=== PATIENT | male | born 1965 | race American Indian/Alaskan Native ===

== ENCOUNTER 2016-10-01 13:39 | Inpatient (IN) | payer MEDICARE ==
--- NOTE | 2016-10-01 14:32 | Emergency Department Report ---
Chief Complaint: Recheck/Abnormal Lab/Rx Stated Complaint: NEED DIALYSIS/HUA Time Seen by Provider: 10/01/16 14:29 - HPI History of Present Illness: PT states he has not had HD in 1 week. PT states his stomach is upset and he is throwing up. - ROS Review of Systems: + sob + swelling - Exam Physical Exam: PT is alert and appropriate + bradycardic MSE screening note: Focused history and physical exam performed. Due to findings the following was ordered: ekg, xr, labs ED Disposition for MSE Condition: Stable
[2016-10-01 15:21] LABS: Basophils % (Auto) 1.4 % (0.0-1.8); Eosinophils % (Auto) 8.8 % (0.0-4.3); Hematocrit 33.3 % (35.5-45.6); Hemoglobin 10.9 gm/dl (11.8-15.2); Mean Corpuscular HGB Conc 33 % (32-34); Mean Corpuscular Hemoglobin 33 pg (28-32); Mean Corpuscular Volume 99 fl (84-94); Platelet Count 203 K/mm3 (140-440); Red Blood Count 3.35 M/mm3 (3.65-5.03); Red Cell Distribution Width 19.2 % (13.2-15.2)
[2016-10-01 15:35] LABS: BUN/Creatinine Ratio 5.19
[2016-10-01 15:37] LABS: Potassium 8.6 mmol/L (3.6-5.0)
[2016-10-01] MEDS ORDERED: PROVENTIL IH ONE (15:40)
[2016-10-01] MEDS ORDERED: D50W (25GM) IV ONE (15:41)
[2016-10-01] MEDS ORDERED: CALCIUM GLUCONATE 2,000 MG in NACL 0.9% 100 ML IV ONE (16:00)
[2016-10-01] MEDS ORDERED: CALCIUM GLUCONATE 1,000 MG in NACL 0.9% 100 ML IV ONE (16:13)
--- NOTE | 2016-10-01 16:13 | XRay Report ---
AP CHEST :10/01/16 13:39:00 CLINICAL: Shortness of breath. COMPARISON:None. FINDINGS: The heart is borderline large. Prominent upper lobe pulmonary vessels. Very mild bibasal streaky opacities. No pulmonary consolidation. No pleural effusion. The bones and soft tissues are normal. IMPRESSION: Borderline cardiomegaly and pulmonary venous hypertension. Mild bibasal subsegmental atelectasis. No CHF or pneumonia.
[2016-10-01] MEDS ORDERED: NACL 0.9% 100 ML IV PRN (16:44)
--- NOTE | 2016-10-01 16:52 | Emergency Department Report ---
ED General Adult HPI - General Chief complaint: Dyspnea/Respdistress Stated complaint: NEED DIALYSIS/HUA Time Seen by Provider: 10/01/16 14:29 Source: patient Mode of arrival: Ambulatory Limitations: No Limitations - History of Present Illness Initial comments: Patient is a 50-year-old male past medical history of end-stage renal disease who gets dialysis Saturday. Patient comes in with shortness of breath and myalgia. Patient states that he is from [place] and that he was traveling to [place] however due to transportation issues he had missed his dialysis for at least one week. Patient's shortness of breath is worse with exertion. It is severe resting makes it better is associated with what muscle aches. Patient denies having any chest pain or fever. Patient is currently satting 98% on 2 L of nasal cannula. He is normally not on any oxygen. Severity scale (0 -10): 4 - Related Data Home Medications Medication Instructions Recorded Confirmed Last Taken Aspirin [Adult Low Dose Aspirin EC] 81 mg PO DAILY 10/01/16 10/01/16 09/30/16 Calcitriol [Rocaltrol] 1 mcg PO QDAY 10/01/16 10/01/16 09/30/16 Darunavir [Prezista] 800 mg PO QDAY 10/01/16 10/01/16 09/30/16 Docusate Sodium [Dok] 200 mg PO TID 10/01/16 10/01/16 09/30/16 Dolutegravir Sodium [Tivicay] 50 mg PO DAILY 10/01/16 10/01/16 09/30/16 Doxazosin [Cardura] 4 mg PO BID 10/01/16 10/01/16 09/30/16 Etravirine [Intelence] 400 mg PO DAILY 10/01/16 10/01/16 09/30/16 Losartan [Cozaar] 100 mg PO QDAY 10/01/16 10/01/16 09/30/16 NIFEdipine [Nifedipine ER] 60 mg PO BID 10/01/16 10/01/16 09/30/16 Ritonavir [Norvir] 100 mg PO QDAY 10/01/16 10/01/16 09/30/16 hydrALAZINE [Apresoline TAB] 100 mg PO TID 10/01/16 10/01/16 09/30/16 Allergies Allergy/AdvReac Type Severity Reaction Status Date / Time cephalexin monohydrate AdvReac Itching Verified 10/01/16 14:35 [From Keflex] heparin AdvReac Unknown Verified 10/01/16 14:35 Sulfa (Sulfonamide AdvReac Hives Verified 10/01/16 14:35 Antibiotics) ED Review of Systems ROS: Stated complaint: NEED DIALYSIS/HUA Other details as noted in HPI Constitutional: denies: chills, fever Eyes: denies: eye pain, eye discharge, vision change ENT: denies: ear pain, throat pain Respiratory: SOB with exertion, SOB at rest. denies: cough, shortness of breath , wheezing Cardiovascular: denies: chest pain, palpitations Endocrine: no symptoms reported Gastrointestinal: denies: abdominal pain, nausea, diarrhea Genitourinary: denies: urgency, dysuria Musculoskeletal: denies: back pain, joint swelling, arthralgia Skin: denies: rash, lesions Neurological: denies: headache, weakness, paresthesias Psychiatric: denies: anxiety, depression Hematological/Lymphatic: denies: easy bleeding, easy bruising ED Past Medical Hx - Past Medical History Previous Medical History?: Yes Hx Hypertension: Yes Hx Renal Disease: Yes - Surgical History Past Surgical History?: Yes - Social History Smoking Status: Never Smoker Substance Use Type: None - Medications Home Medications: Home Medications Medication Instructions Recorded Confirmed Last Taken Type Aspirin [Adult Low Dose Aspirin EC] 81 mg PO DAILY 10/01/16 10/01/16 09/30/16 History Calcitriol [Rocaltrol] 1 mcg PO QDAY 10/01/16 10/01/16 09/30/16 History Darunavir [Prezista] 800 mg PO QDAY 10/01/16 10/01/16 09/30/16 History Docusate Sodium [Dok] 200 mg PO TID 10/01/16 10/01/16 09/30/16 History Dolutegravir Sodium [Tivicay] 50 mg PO DAILY 10/01/16 10/01/16 09/30/16 History Doxazosin [Cardura] 4 mg PO BID 10/01/16 10/01/16 09/30/16 History Etravirine [Intelence] 400 mg PO DAILY 10/01/16 10/01/16 09/30/16 History Losartan [Cozaar] 100 mg PO QDAY 10/01/16 10/01/16 09/30/16 History NIFEdipine [Nifedipine ER] 60 mg PO BID 10/01/16 10/01/16 09/30/16 History Ritonavir [Norvir] 100 mg PO QDAY 10/01/16 10/01/16 09/30/16 History hydrALAZINE [Apresoline TAB] 100 mg PO TID 10/01/16 10/01/16 09/30/16 History ED Physical Exam - General Limitations: No Limitations General appearance: alert, in no apparent distress - Head Head exam: Present: atraumatic, normocephalic - Eye Eye exam: Present: normal appearance - ENT ENT exam: Present: mucous membranes moist - Neck Neck exam: Present: normal inspection - Respiratory Respiratory exam: Present: other (slight crackles ) - Cardiovascular Cardiovascular Exam: Present: bradycardia - GI/Abdominal GI/Abdominal exam: Present: soft. Absent: distended, tenderness - Extremities Exam Extremities exam: Present: other (right AV fistula bruit intact ) - Back Exam Back exam: Present: normal inspection - Neurological Exam Neurological exam: Present: alert, oriented X3, CN II-XII intact - Psychiatric Psychiatric exam: Present: normal affect, normal mood - Skin Skin exam: Present: warm ED Course Vital Signs 10/01/16 10/01/16 10/01/16 14:30 15:23 15:25 Temperature 98.2 F Pulse Rate 45 L 52 L 55 L Respiratory 24 21 12 Rate Blood Pressure 226/102 O2 Sat by Pulse 100 100 100 Oximetry 10/01/16 10/01/16 10/01/16 15:31 15:35 15:41 Temperature Pulse Rate 45 L 47 L 43 L Respiratory 21 19 16 Rate Blood Pressure 225/101 225/101 225/101 O2 Sat by Pulse 100 100 100 Oximetry 10/01/16 10/01/16 10/01/16 15:45 15:51 15:55 Temperature Pulse Rate 53 L 58 L 58 L Respiratory 16 19 13 Rate Blood Pressure 225/101 225/101 225/101 O2 Sat by Pulse 100 99 100 Oximetry 10/01/16 10/01/16 16:00 16:05 Temperature Pulse Rate 65 63 Respiratory 20 12 Rate Blood Pressure 235/113 235/113 O2 Sat by Pulse 90 95 Oximetry - Reevaluation(s) Reevaluation #1: 10/01/16 17:33 Reevaluated patient he says he is doing fine he is still on 2 L nasal cannula. Reevaluation #2: 10/01/16 17:34 Patient's blood pressure is 204/98 will give patient IV antihypertensives. - Consultations Consultation #1: 10/01/16 16:[address] Lowry Telephone Order Clerk Room Service about patient's hyperkalemia and need for emergent dialysis. He states that he will place the dialysis orders and I will give the patient IV calcium, IV insulin, IV dextrose, albuterol. 10/01/16 17:33 Consultation #2: 10/01/16 17:[address] Harry the hospitalist patient needs to be admitted and dialysis orders are placed he agrees with plan. He will admit the patient. ED Medical Decision Making - Lab Data Result diagrams: 10/01/16 14:59 10/01/16 14:59 Laboratory Results - last 24 hr 10/01/16 10/01/16 10/01/16 14:59 14:59 16:14 WBC 7.0 RBC 3.35 L Hgb 10.9 L Hct 33.3 L MCV 99 H MCH 33 H MCHC 33 RDW 19.2 H Plt Count 203 Lymph % (Auto) 13.7 Boyle % (Auto) 3.7 Eos % (Auto) 8.8 H Baso % (Auto) 1.4 Lymph # 1.0 L Boyle # 0.3 Eos # 0.6 H Baso # 0.1 Seg Neutrophils % 72.4 H Seg Neutrophils # 5.1 Sodium 147 H Potassium 8.6 H* Chloride 105.0 Carbon Dioxide 17 L Anion Gap 34 BUN 106 H Creatinine 20.4 H Estimated GFR 2 BUN/Creatinine Ratio 5.19 Glucose 78 Calcium 9.0 Troponin T 0.084 H NT-Pro-B Natriuret Pep 99066 H Triglycerides 149 Cholesterol 179 LDL Cholesterol Direct 73 HDL Cholesterol 77 H Cholesterol/HDL Ratio 2.32 - EKG Data -: EKG Interpreted by Me - EKG Data 10/01/16 17:31 EKG shows sinus bradycardia no ST segment elevations or T-wave inversions. - Radiology Data Radiology results: report reviewed, image reviewed Chest x-ray shows borderline cardiomegaly. - Medical Decision Making Chief medical diagnosis: Hyperkalemia Differential medical diagnosis: Hypertensive urgency, non-STEMI, metabolic abnormality, heart failure CBC, CMP, TROPONIN, CHEST X-RAY, EKG PATIENT HAS A POTASSIUM OF 8.6 , I'll give patient IV calcium, IV glucose, IV insulin, IV antihypertensives and albuterol due to patient's emergent conditon. I will also give the patient aspirin due to him having an elevated troponin, patient is at risk for a life-threatening metabolic abnormality he will need to be admitted. Discussed patient's case with cardiac nurse practitioner Critical Care Time: Yes Critical care time in (mins) excluding proc time.: 35 Critical care attestation.: If time is entered above; I have spent that time in minutes in the direct care of this critically ill patient, excluding procedure time. Time spent at patient's bedside to 20 minutes Time spent with consultants 10 minutes Time again over laboratory findings 5 minutes ED Disposition Clinical Impression: End stage renal disease on dialysis, Hyperkalemia, Bradycardia, Hypertensive urgency Disposition: [id number] OP ADMIT IP TO THIS HOSP Is pt being admited?: Yes Does the pt Need Aspirin: No (patient already got aspirin) Condition: Stable Referrals: PRIMARY CARE, [Primary Care Provider] - 3-5 Days Time of Disposition: 17:40
--- NOTE | 2016-10-01 17:08 | Admit Criteria Form ---
Admission Criteria Documentation: GENERAL ADMISSION CRITERIA (Place 'X' for any and all applicable criteria): Admission is indicated for ANY ONE of the following: [ ]I. Hemodynamic instability as indicated by ANY ONE of the following(1)(2) (3)(4)(5): [ ]a) Vital sign abnormality not readily corrected by appropriate treatment within 12 to 24 hours indicated by ANY ONE of the following: [ ]i) Hypotension [ ]ii) Symptomatic Tachycardia unresponsive to treatment (eg , analgesia, fluids, sedation as indicated) [ ]iii) Orthostatic vital sign changes unresponsive to treatment (eg, fluids) [ ]b) Vital sign abnormality that is severe indicated by ANY ONE of the following: [ ]i) Inadequate perfusion indicated by ANY ONE of the following: [ ]1) Lactic acidosis (greater than 2 mmol/L) [ ]2) New abnormal capillary refill (greater than 3 seconds) [ ]3) Other metabolic acidosis (arterial pH less than 7.35) not otherwise explained [ ]4) Reduced urine output [ ]5) Altered mental status [ ]6) Myocardial Ischemia [ ]v) Mean arterial pressure[A] less than 60 mm Hg [ ]vi) Mean arterial pressure[A] less than 70 mm Hg after 30 minutes of appropriate treatment (eg, fluid resuscitation) [ ]vii) IV inotropic or vasopressor medication required to maintain adequate blood pressure or perfusion [ ]viii) Sustained heart rate greater than 120 beats per minute in adult or child 6 years or older[B]] [X ]II. Hypertension requiring inpatient treatment as indicated by ANY ONE of the following(6)(7)(8): [ X]a) SBP greater than 220 mm Hg or DBP greater than 120 mm Hg despite treatment [ ]b) SBP greater than 140 mm Hg or DBP greater than 100 mm Hg with evidence of acute end organ damage as indicated by ANY ONE of the following: [ ]i) Encephalopathy [ ]ii) Acute renal failure as indicated by new onset of ANY ONE of the following(9)(10)(11)(12)(13): [ ]1) A 3-fold rise in serum creatinine from baseline [ ]2) Serum creatinine greater than 4 mg/dL ( 354 micromoles/L) with acute rise greater than 0.5 mg/dL (44.2 micromoles/L) [ ]3) Reduction of more than 75% in estimated glomerular filtration rate from baseline [ ]4) Estimated glomerular filtration rate less than 35 mL/min/1.73m2 (0.59 mL/sec/1.73m2) in child up to 18 years of age [ ]5) Cessation of urine output indicated by ALL of the following: [ ]A. Adequate volume status [ ]B. Inadequate urine output as indicated by ANY ONE of the following: [ ]a. Urine output less than 0.3 mL/kg/hr for 24 hours [ ]b. Anuria (urine output less than 0.1 mL/kg/hr) for 12 hours [ ]iii) Aortic dissection [ ]iv) Myocardial ischemia [ ]v) Left ventricular heart failure [ ]vi) Retinal hemorrhage [ ]vii) Other significant finding [ ]c) Hypertension in child requiring inpatient treatment as indicated by ALL of the following(14)(15)(16): [ ]i) Outpatient treatment not effective, not available, or not appropriate [ ]ii) SBP or DBP greater than 95th percentile for age [ ]iii) Evidence of acute end organ damage as indicated by ANY ONE of the following: [ ]1) Altered mental status [ ]2) Acute renal failure as indicated by new onset of ANY ONE of the following(9)(10)(11)(12)(13): [ ]A. A 3-fold rise in serum creatinine from baseline [ ]B. Serum creatinine greater than 4 mg/dL (354 micromoles/L) with acute rise greater than 0.5 mg/dL (44.2 micromoles/L) [ ]C. Reduction of more than 75% in estimated glomerular filtration rate from baseline [ ]D. Estimated glomerular filtration rate less than 35 mL/min/1.73m2 (0.59 mL/sec/1.73m2)in child up to 18 years of age [ ]E. Cessation of urine output indicated by ALL of the following: [ ]a. Adequate volume status [ ]b. Inadequate urine output as indicated by ANY ONE of the following: [ ]1) Urine output less than 0.3 mL/kg/hr for 24 hours [ ]2) Anuria (urine output less than 0.1 mL/kg/hr) for 12 hours [ ]3) Severe headache [ ]4) Visual disturbance [ ]5) Retinal hemorrhage [ ]6) Other significant finding [ ]III. Acute cardiac or peripheral ischemia as indicated by ANY ONE of the following: [ ]a) Acute coronary syndrome(17)(18) [ ]b) Acute peripheral ischemia (eg, pulseless, cool, mottled, or cyanotic extremity)(19) [ ]IV. Cardiac arrhythmias or findings of immediate concern indicated by ANY ONE of the following(20)(21): [ ]a) Heart rhythms that are inherently dangerous or unstable indicated by ANY ONE of the following(22)(23)(24): [ ]i) Resuscitated ventricular fibrillation or cardiac arrest [ ]ii) Ventricular escape rhythm [ ]iii) Sustained ventricular tachycardia (30 seconds or more of ventricular rhythm at greater than 100 beats per minute) [ ]iv) Nonsustained ventricular tachycardia and ANY ONE of the following: [ ]1) Suspected cardiac ischemia as cause or consequence of ventricular tachycardia [ ]2) In setting of acute myocarditis [ ]b) Unstable cardiac conduction defects indicated by ANY ONE of the following(24)(25)(26): [ ]i) Type II second-degree atrioventricular block [ ]ii) Third-degree atrioventricular block [ ]iii) New-onset left bundle branch block with suspected myocardial ischemia [ ]c) Any heart rhythm and ANY ONE of the following(22)(23)(27)(28)( 29): [ ] i) Continuous long-term ECG monitoring needed (eg, initiation of drug requiring monitoring for more than 24 hours) [ ] ii) Patient has automatic implanted cardioverter defibrillator that is repeatedly firing, malfunctioning, or in need of immediate adjustment of settings beyond the scope of ambulatory or observation care. [ ]d) Heart rhythms of concern due to ANY ONE of the following: [ ]i) Hypotension [ ]ii) Respiratory distress [ ]iii) Association with other significant symptoms (eg, bradycardia with syncope or ongoing dizziness, supraventricular tachycardia with chest pain) (27)(28) (30) [ ] V. Severe heart failure as indicated by ANY ONE of the following ( 31)(32): [ ]a) Respiratory distress [ ]b) Hypotension [ ]c) Anasarca (refractory to outpatient therapy) [ ]d) Cardiac arrhythmias of immediate concern [ ]e) Myocardial ischemia [ ]. Respiratory abnormalities, including ANY ONE of the following(33)(34) (35)(36): [ ]a) Respiratory rate greater than 30 breaths per minute unresponsive to treatment [A] [ ]b) New saturation of arterial oxygen less than 90% [ ]c) New partial pressure of carbon dioxide greater than 44 mm Hg ( 5.9 kPa) [ ]d) Supplemental oxygen or respiratory treatments needed that are new or not performable at other levels of care [ ]e) New-onset cyanosis [ ]f) Inability to protect airway [ ]g) Chronic lung disease with severe deterioration (not responsive to emergency and observation care treatment as appropriate) as indicated by ANY ONE of the following(34)(36 ): [ ]i) SaO2 5% below baseline in patient with chronic hypoxemia [ ]ii) New requirement for supplemental oxygen to keep SaO2 at baseline or acceptable level [ ]iii) Required supplemental oxygen performable only in acute inpatient setting [ ]iv) Severe airflow or ventilation abnormalities [ ]v) Previously mobile patient unable to walk between rooms [ ]vi Inability to eat or sleep due to dyspnea [ ]vii) Rapid rate of exacerbation onset [ ]viii) Altered mental status ]VII. Severe airflow or ventilation abnormalities (not responsive to emergency and observation care treatment as appropriate) as indicated by ANY ONE of the following(33)(34)(35)(37): [ ]a) PCO2 greater than 42 mm Hg (5.6 kPa) and pH less than 7.35 (new ) [ ]b) Documented PCO2 increased more than 5 mm Hg (0.7 kPa) from disease baseline [ ]c) Airflow measurements [B] less than 60% of previous best or predicted (eg, peak expiratory flow rate less than 300 L/minute) despite intensive emergent treatment [C] [ ]d) Required respiratory treatments that are performable only in acute inpatient setting [ ]VIII. Impending or actual respiratory arrest ( Also use Respiratory Failure GRG for severe respiratory disease and long-term mechanical ventilation patients) [ ]IX. Neurologic abnormalities, including ANY ONE of the following: [ ]a) New findings that suggest ANY ONE of the following: [ ]i) NEMATOLOGY TEACHER infection(38) [ ]ii) Cerebral bleeding, ischemia, or vasospasm(39)(40) [ ]iii) Increased intracranial pressure, hydrocephalus, or cerebral edema(41)(42)(43) [ ]iv) Spinal cord injury(44) [ ]b) Uncontrolled seizures(45) [ ]c) New-onset coma (eg, Cotavio coma scale score less than 9) or unexplained abnormal mental status (eg, Inglis coma scale score less than 14) [D](41)(46)(47) [ ]X. New-onset severe neurologic findings requiring inpatient care; examples include(42)(48)(49): [ ]a) Papilledema [ ]b) Cerebral edema [ ]c) Mass effect on CT scan [ ]XI. Suspected acute intra-abdominal process with peritoneal signs, abdominal mass, or similar findings (50)(51)(52) [ ]XII. Severe physiologic disorder remaining after emergency or observation level care (as appropriate) as indicated by ANY ONE of the following (53): [ ]a) Significant dehydration [ ]b) Diabetic ketoacidosis [ ]c) Hyperglycemic hyperosmolar state (eg, osmolality greater than 320 mOsm/kg (mmol/kg) [ ]d) Hypoglycemia [ ]e) Other (new) acid-base disorder with pH less than 7.35 or greater than 7.5(54) [ ]f) Thyroid storm (55) [ ]g) Myxedema coma (55) [ ]XIII. Abdominal abnormalities with ANY ONE of the following(56)(57): [ ]a) Absent bowel sounds with complete ileus [ ]b) Signs of intestinal obstruction or peritonitis [E] [ ]c) Nausea and vomiting that cannot be controlled with outpatient or observation care [ ]XIV. Acute renal failure as indicated by new onset of ANY ONE of the following(9)(10)(11)(12)(13): [ ]a) A 3-fold rise in serum creatinine from baseline [ ]b) Serum creatinine greater than 4 mg/dL (354 micromoles/L) with acute rise greater than 0.5 mg/dL (44.2 micromoles/L) [ ]c) Reduction of more than 75% in estimated glomerular filtration rate from baseline [ ]d) Estimated glomerular filtration rate less than 35 mL/min/ 1.73m2 (0.59 mL/sec/1.73m2) in child up to 18 years of age [ ]e) Cessation of urine output indicated by ALL of the following: [ ]i) Adequate volume status [ ]ii) Inadequate urine output as indicated by ANY ONE of the following: [ ]1) Urine output less than 0.3 mL/kg/hr for 24 hours [ ]2) Anuria (urine output less than 0.1 mL/kg/hr) for 12 hours [ ]XV. Significant uremic complications as indicated by ANY ONE of the following(58)(59)(60): [ ]a) Outpatient therapy is ineffective or not feasible for ANY ONE of the following: [ ]i) Severe heart failure [ ]ii) Severehypertension [ ]iii) Pleural effusion [ ]iv) Pericarditis or pericardial effusion [ ]b) Cardiac arrhythmias of immediate concern [ ]c) Intractable nausea or vomiting [ ]d) Recurrent seizures [ ]e) Encephalopathy [ ]f) Bleeding abnormalities (eg, platelet dysfunction) with active (eg, gastrointestinal) bleeding [ ]g) Dialysis indicated before long-term access or ambulatory arrangements can be made [ ]h) Significant metabolic or electrolyte abnormalities (eg, severe acidosis or hyperkalemia) [ ]XVI. High fever or other high-risk infection situation as indicated by ANY ONE of the following(61)(62)(63)(64): [ ]a) Outpatient and observation care antimicrobial treatment unavailable, not effective, or not appropriate [ ]b) Documented bacteremia [ ]c) Temperature greater than 40.5 degrees C (104.9 degrees F) ( oral) [ ]d) Temperature greater than 39.5 degrees C (103.1 degrees F) ( oral) or less than 36 degrees C (96.8 degrees F) (rectal) that does not respond to e treatment and observation care [ ] XVII. Temperature less than 95 degrees F (35 degrees C)(rectal)(65) [ ] XVIII. Severe nutritional abnormalities as indicated by ALL of the following (66)(67): [ ]a) Inability to tolerate or establish sufficient oral or other enteral nutrition in outpatient setting [ ]b) Parenteral nutrition regimen need that must be implemented on inpatient basis [X ] XIX. Severe electrolyte abnormalities indicated by ALL of the following(68 )(69)(70): [ X]a) Electrolytes and associated findings are not as expected for patient baseline or acceptable treatment effects. [ X]b) Severe abnormalities indicated by ANY ONE of the following: [ ]i) Sodium less than 130 mEq/L (mmol/L) (new) [ ]ii)Sodium less than 135 mEq/L (mmol/L) with ANY ONE of the following: [ ]1) Uncorrectable (to near normal or chronic baseline) after trial of outpatient and emergency treatment [ ]2) Altered mental status [ ]3) Seizures [ ]4) Severe medical etiology requiring inpatient management (eg, heart failure, hypovolemia) [ ]iii) Sodium greater than 155 mEq/L (mmol/L) [ ]iv) Sodium greater than 150 mEq/L (mmol/L) with ANY ONE of the following: [ ]1) Uncorrectable (to near normal or chronic baseline) with outpatient and emergency treatment [ ]2) Altered mental status [ ]3) Seizures [ ]4) Severe medical etiology (eg, hypovolemia, diabetes insipidus) [ ]v) Potassium less than 2.5 mEq/L (mmol/L) despite outpatient and emergency treatment [ ]vi) Potassium less than 3 mEq/L (mmol/L) with ANY ONE of the following: [ ]1) Weakness [ ]2) Cardiac abnormality (eg, arrhythmia, conduction disturbance) [ ]3) Cardiac ischemia [ ]4) Ileus [ ]5) Ongoing medical cause requiring inpatient management (eg, acute renal wasting or SIADH) [ ]6) Other severe symptoms [ X]vii) Potassium greater than 6.5 mEq/L (mmol/L) [ ]viii) Potassium greater than 5 mEq/L (mmol/L) with ANY ONE of the following: [ ]1) Uncorrectable (to near normal or chronic baseline) with outpatient and emergency treatment [ ]2) Severe ECG findings [F] [ ]3) Acute worsening of renal failure (creatinine greater than 2.5 mg/dL (221 micromoles/L) or significant elevation for age and size) [ ]4) Severe weakness [ ]5) Severe medical etiology (eg, hemolysis, infection, drug overdose) [ ]ix) Calcium less than 7 mg/dL (1.75 mmol/L) despite outpatient and emergency treatment (72) [ ]x) Calcium less than 8 mg/dL (2 mmol/L) with significant symptoms or findings; examples include(72): [ ]1) Altered mental status [ ]2) Muscle spasms [ ]3) Seizures [ ]4) Breathing difficulty [ ]5) Cardiac abnormality (eg, arrhythmia or conduction disturbance) [ ]xi) Calcium greater than 14 mg/dL (3.5 mmol/L)(72) [ ]xii) Calcium greater than 12 mg/dL (3 mmol/L) with ANY ONE of the following(72): [ ]1) Uncorrectable (to near normal or chronic baseline) with outpatient and emergency treatment [ ]2) Significant dehydration or hypovolemia as indicated by ALL of the following(70)(73)(74): [ ]A. Not resolved with initial treatments [ ]B. Clinically significant dehydration as indicated by ANY ONE of the following: [ ]a. Vomiting refractory to outpatient treatment (ie, precluding oral rehydration) [ ]b. Inability to drink [ ]c. Hypernatremia or other electrolyte abnormality unable to be corrected with outpatient and emergency treatment [ ]d. Failure to remain hydrated with outpatient therapy [ ]e. Reduced urine output [ ]f. Hypotension [ ]g. Serious cause for dehydration requiring acute hospitalization (eg, bowel obstruction, increased intracranial pressure, infectious cause) [ ]h. Child with ANY ONE of the following(75): [ ]1) Severe abdominal tenderness [ ]2) Adequate care not available at home [ ]3) Severe dehydration ( greater than 9% loss of body weight) [ ]4) Significant symptoms or findings; examples include: [ ]A. Altered mental status [ ]B. Cardiac abnormality (eg, arrhythmia, conduction disturbance) [ ]C. Malignant etiology requiring inpatient treatment [ ]xiii) Phosphorus less than 1 mg/dL (0.32 mmol/L) [ ]xiv) Phosphorus less than 1.5 mg/dL (0.48 mmol/L) with ANY ONE of the following: [ ]1) Patient unresponsive to outpatient and emergency treatment [ ]2) Significant symptoms or findings; examples include: [ ]A. Weakness [ ]B. Altered mental status [ ]C. Breathing difficulty [ ]D. Seizures [ ]E. Rhabdomyolysis [ ]xv) Phosphorus greater than 10 mg/dL (3.2 mmol/L) [ ]xvi) Phosphorus greater than 4.5 mg/dL (1.45 mmol/L) (new) with ANY ONE of the following: [ ]1) Severe medical etiology (eg, crush injury, acute renal failure) [ ]2) Associated hypocalcemia with significant findings; examples include: [ ]A. Neurologic symptoms [ ]B. Altered mental status [ ]C. Muscle spasms [ ]D. Seizures [ ]E. Breathing difficulty [ ]F. Cardiac abnormality (eg, arrhythmia, conduction disturbance) [ ]xvii) Magnesium less than 1 mg/dL (0.41 mmol/L) [ ]xviii) Magnesium less than 1.5 mg/dL (0.62 mmol/L) with ANY ONE of the following: [ ]1) Patient unresponsive to outpatient and emergency treatment [ ]2) Associated hypocalcemia with significant findings; examples include: [ ]A. Altered mental status [ ]B. Muscle spasms [ ]C. Seizures [ ]D. Breathing difficulty [ ]E. Cardiac abnormality (eg, arrhythmia , conduction disturbance) [ ]3) Associated hypokalemia (potassium less than 3 mEq/L (mmol/L)) with risk of arrhythmia [ ]xix) Magnesium greater than 4 mEq/L (2 mmol/L) [ ]xx) Magnesium greater than 2.5 mEq/L (1.25 mmol/L) with significant symptoms or findings; examples include: [ ]1) Weakness [ ]2) Altered mental status [ ]3) Cardiac abnormality (eg, arrhythmia, conduction disturbance) [ ]4) Breathing difficulty [ ]5) Severe medical etiology (eg, renal failure, hypovolemia) [ ]xxi) Uric acid greater than 20 mg/dL (1190 micromoles/L)(76) [ ]xxii) Uric acid greater than 8 mg/dL (476 micromoles/L) with significant symptoms or findings of tumor lysis syndrome; examples include(76): [ ]1) Creatinine greater than 1.5 times upper limit of normal [ ]2) Cardiac abnormality (eg, arrhythmia, conduction disturbance) [ ]3) Seizure [ ]XX. Acute blood loss causing significant abnormality as indicated by ANY ONE of the following(77)(78): [ ]a) Hemoglobin less than 10 g/dL (100 g/L) (not baseline) [ ]b) Hematocrit less than 30% (0.30) (not baseline) [ ]c) Repeat hematocrit decreased more than 2% (0.02) [ ]d) Uncontrolled bleeding [ ]XXI. Severe anemia indicated by ANY ONE of the following(78)(79): [ ]a) Altered mental status [ ]b) Chest pain [ ]c) Exertional dyspnea [ ]d) Syncope [ ]e) Other findings suggesting inadequate perfusion [ ]f) Treatment with transfusion or volume replacement is ineffective at resolving ANY ONE of the following [G]: [ ]i) Tachycardia for age [ ]ii) Orthostatic vital sign changes as indicated by ANY ONE of the following(80): [ ]1) Fall in SBP of 20 mm Hg or more 1 to 3 minutes after patient sits or stands from recumbent position [ ]2) Fall in DBP of 10 mm Hg or more 1 to 3 minutes after patient sits or stands from recumbent position [ ]XXII. High-risk low platelet count as indicated by ANY ONE of the following( 81)(82): [ ]a) Severe or life-threatening bleeding (eg, intracranial, major gastrointestinal, or extensive mucosal bleeding), with any reduced platelet count [ ]b) Platelet count less than 20,000/mm3 (20 x109/L) with any active bleeding [ ]c) Platelet count less than 10,000/mm3 (10 x109/L) with minor purpura or petechiae [ ]d) Platelet count less than 5000/mm3 (5 x109/L) [ ]e) Low platelet count with hemolytic anemia [ ]XXIII. Disseminated intravascular coagulation(77)(83) [ ]XXIV. Severe adverse drug or systemic toxin reaction requiring inpatient treatment; examples include(84)(85): [ ]a) Serotonin syndrome(86) [ ]b) Neuroleptic malignant syndrome(86) [ ]c) Cholinergic syndrome with severe symptoms (eg, bronchorrhea, weakness, mental status changes, seizures) [ ]d) Sympathetic syndrome with severe symptoms (eg, seizures, mental status changes, cardiac dysrhythmias) [ ]e) Anticholinergic syndrome [ ]XXV. Severe pain requiring acute inpatient management as indicated by ALL of the following (87)(88)(89): [ ]a) Continuous or frequent (eg, every 2 to 4 hours) parenteral analgesics required [H] [ ]b) Rapid improvement expected from treatment or acute intervention (eg, surgery, anesthesia procedure) [ ]XXVI.Severe behavioral health issues judged unmanageable at a lower level of care (eg, residential) in a patient who is ANY ONE of the following(91) [ ]a) Acutely suicidal [ ]b) A danger to self (eg, self-mutilating or suicidal behavior) [ ]c) A danger to others (eg, assaultive or homicidal behavior) [ ]d) Incapacitated because of grave disability (eg, inability to provide for self at lower level of care) (92) [ ]XXVII. Inpatient monitoring needed; examples include(1)(3)(87)(93)(94)(95)(96 ): [ ]a) Vital signs, neurologic signs, or vascular checks more frequently than every 4 hours [ ]b) Cardiac or respiratory monitoring beyond the scope (eg, over 24 hours) of observation care [ ]c) Pulmonary artery catheter monitoring [ ]d) Suspected compartment syndrome(97) (98) [ ]e) Cerebral bleeding, hydrocephalus, or vasospasm monitoring [ ]f) Increased intracranial pressure or cerebral edema monitoring [ ]g) monitoring [ ]XXVIII. Treatment requiring inpatient care; examples include: [ ]a) IV fluid to replace significant ongoing losses (greater than 3 L/m2 per day)(53) [ ]b) High concentration oxygen (greater than 40%)(33)(99)(100) [ ]c) Frequent respiratory therapy (more frequently than every 4 hours) to maintain airflow rates greater than 60% of baseline(33)(99)(100) [ ]d) Epidural analgesia(87) [ ]e) IV anticoagulation, vasoactive, or antiarrhythmic medication(19 )(23) [ ]f) Acute thrombolytics (generally require 24 hours of observation )(101)(102) [ ]XXIX. Emergency procedures needed; examples include: [ ]a) Emergency inpatient surgery [ ]b) Temporary pacemaker placement(103) [ ]c) Chest tube placement with active evacuation (eg, suction, drainage)(104) [ ]d) Emergent cardioversion(105) [ ]e) Emergent cardiac or vascular procedures (eg, cardiac catheterization, angioplasty) (17)(18) [ ]f) Emergent dialysis access placement and institution(10)(106) [ ]g) Emergent pericardiocentesis(107) [ ]h) Emergent plasmapheresis or leukapheresis(83) [ ]i) Emergent tracheostomy The original [employer] content created by [employer] has been revised. The portions of the content which have been revised are identified through the use of italic text or in bold, and [employer] has neither reviewed nor approved the modified material. All other unmodified content is copyright [employer]. Please see references footnoted in the original [employer] edition 2016 Admission Criteria Met: Yes
--- NOTE | 2016-10-01 17:24 | Consultation ---
History of Present Illness - Reason for Consult Consult date: 10/01/16 end stage renal disease, hyperkalemia Requesting physician: JESSE PONCE - History of Present Illness 50-year-old male past medical history of end-stage renal disease who gets dialysis Saturday. Patient comes in with worsening shortness of breath and myalgia x 2 days duration in the setting of missing dialysis for a week. Patient states that he is from [place] and that he was traveling to [place] however due to transportation issues he had missed his dialysis for at least one week. Patient's shortness of breath worse with exertion. Resting makes it better. Has AVF for dialysis Past History Past Medical History: ESRD, hypertension, other (HIV on HAART) Past Surgical History: Other (AVF) Social history: denies: smoking, alcohol abuse, IV drug use Family history: no significant family history Medications and Allergies Allergies Allergy/AdvReac Type Severity Reaction Status Date / Time cephalexin monohydrate AdvReac Itching Verified 10/01/16 14:35 [From Keflex] heparin AdvReac Unknown Verified 10/01/16 14:35 Sulfa (Sulfonamide AdvReac Hives Verified 10/01/16 14:35 Antibiotics) Home Medications Medication Instructions Recorded Confirmed Last Taken Type Aspirin [Adult Low Dose Aspirin EC] 81 mg PO DAILY 10/01/16 10/01/16 09/30/16 History Calcitriol [Rocaltrol] 1 mcg PO QDAY 10/01/16 10/01/16 09/30/16 History Darunavir [Prezista] 800 mg PO QDAY 10/01/16 10/01/16 09/30/16 History Docusate Sodium [Dok] 200 mg PO TID 10/01/16 10/01/16 09/30/16 History Dolutegravir Sodium [Tivicay] 50 mg PO DAILY 10/01/16 10/01/16 09/30/16 History Doxazosin [Cardura] 4 mg PO BID 10/01/16 10/01/16 09/30/16 History Etravirine [Intelence] 400 mg PO DAILY 10/01/16 10/01/16 09/30/16 History Losartan [Cozaar] 100 mg PO QDAY 10/01/16 10/01/16 09/30/16 History NIFEdipine [Nifedipine ER] 60 mg PO BID 10/01/16 10/01/16 09/30/16 History Ritonavir [Norvir] 100 mg PO QDAY 10/01/16 10/01/16 09/30/16 History hydrALAZINE [Apresoline TAB] 100 mg PO TID 10/01/16 10/01/16 09/30/16 History Active Meds: Active Medications Sodium Chloride (Nacl 0.9%) 100 mls @ 999 mls/hr IV BERNARDA PRN PRN Reason: Hypotension Review of Systems Constitutional: fatigue, weakness Ears, nose, mouth and throat: no nasal congestion, no nasal discharge Cardiovascular: orthopnea, no chest pain, no palpitations, no syncope Respiratory: cough, no wheezing, no pleurisy Gastrointestinal: no nausea, no vomiting, no diarrhea Genitourinary Male: no flank pain, no genital pain Rectal: no pain, no incontinence Musculoskeletal: no neck pain, no shooting arm pain, no arm numbness/tingling Integumentary: no rash, no pruritis, no redness Neurological: no paralysis, no weakness, no parathesias Psychiatric: no anxiety, no sleep disturbances Endocrine: no cold intolerance, no heat intolerance Hematologic/Lymphatic: no easy bruising, no easy bleeding Exam - Vital Signs Vital signs: Vital Signs Temp Pulse Resp BP Pulse Ox 98.2 F 45 L 24 226/102 100 10/01/16 14:30 10/01/16 14:30 10/01/16 14:30 10/01/16 14:30 10/01/16 14:30 - General Appearance General appearance: well-developed, well-nourished, appears stated age, moderate distress EENT: PERRL, mucous membranes moist Neck: Present: neck supple, trachea midline. Absent: JVD/HJR, Masses Respiratory: Rales, Decreased Breath Sounds Heart: regular, normal heart rate, S1S2, no murmurs Gastrointestinal: Present: normoactive bowel sounds. Absent: normal, tenderness , distended, masses, guarding Integumentary: no rash, warm and dry Neurologic: no focal deficit, alert and oriented x3, gait normal, strength 5/5 Musculoskeletal: Absent: deformities, joint swelling Psychiatric: mood/affect appropriate, cooperative Results - Lab Results 10/01/16 14:59 10/01/16 14:59 Most recent lab results Calcium 9.0 mg/dL (8.4-10.2) 10/01/16 14:59 Assessment and Plan 1. Severe hyperkalemia 2. ESRD on HD 3. Malignant HTN 2/2 missed HD 4. AG metabolic acidosis 2/2 uremia/missed HD 5. SOB 2/2 fluid overload 6. Non compliance with dialysis 7. Anemia of ESRD Plan: Emergency dialysis arrangement made Will gradually lower potassium level-Use 2 K bath for 3 hrs and 1 K in the last hr. Calcium gluconate, insulin with D50 ill dialysis starts. 4-5 L fluid removal on dialysis HD again tomorrow am Repat K level 1 hr after dialysis Expect BP to improve with dialysis. Resume oral medications too. If it remains high will need to start Cardene drip and transfer to ICU Discussed with ER MD and tightener Further recommendations to follow CCM: 46 min
[2016-10-01] MEDS ORDERED: BABY ASPIRIN PO ONE (17:31)
[2016-10-01] MEDS ORDERED: APRESOLINE IV ONE ×3 (17:39→20:36)
--- NOTE | 2016-10-01 18:03 | History and Physical Report ---
History of Present Illness Chief complaint: I cant breathe History of present illness: 50 YO Male with HIV,ESRD on HD(M,W,F), HTN presents to ED for evaluation. Pt states that he feels swollen, and has been experiencing difficulty breathing for the past 5 days with worsening symptoms over the past day. Pt acknowledges noncompliance with dialysis for the past week. Pt denies fever, chills, CP, Palpitations, NVD, syncope, productive cough or recent ill contacts. Pt seen and evaluated in ED and found to be in severe respiratory distress. Pt placed on supplemental oxygen. Past History Past Medical History: ESRD, HIV/AIDS, hypertension Past Surgical History: Other (AVF) Social history: single Family history: hypertension Medications and Allergies Allergies Allergy/AdvReac Type Severity Reaction Status Date / Time cephalexin monohydrate AdvReac Itching Verified 10/01/16 14:35 [From Keflex] heparin AdvReac Unknown Verified 10/01/16 14:35 Sulfa (Sulfonamide AdvReac Hives Verified 10/01/16 14:35 Antibiotics) Home Medications Medication Instructions Recorded Confirmed Last Taken Type Aspirin [Adult Low Dose Aspirin EC] 81 mg PO DAILY 10/01/16 10/01/16 09/30/16 History Calcitriol [Rocaltrol] 1 mcg PO QDAY 10/01/16 10/01/16 09/30/16 History Darunavir [Prezista] 800 mg PO QDAY 10/01/16 10/01/16 09/30/16 History Docusate Sodium [Dok] 200 mg PO TID 10/01/16 10/01/16 09/30/16 History Dolutegravir Sodium [Tivicay] 50 mg PO DAILY 10/01/16 10/01/16 09/30/16 History Doxazosin [Cardura] 4 mg PO BID 10/01/16 10/01/16 09/30/16 History Etravirine [Intelence] 400 mg PO DAILY 10/01/16 10/01/16 09/30/16 History Losartan [Cozaar] 100 mg PO QDAY 10/01/16 10/01/16 09/30/16 History NIFEdipine [Nifedipine ER] 60 mg PO BID 10/01/16 10/01/16 09/30/16 History Ritonavir [Norvir] 100 mg PO QDAY 10/01/16 10/01/16 09/30/16 History hydrALAZINE [Apresoline TAB] 100 mg PO TID 10/01/16 10/01/16 09/30/16 History Active Meds: Active Medications Sodium Chloride (Nacl 0.9%) 100 mls @ 999 mls/hr IV BERNARDA PRN PRN Reason: Hypotension Review of Systems Constitutional: no weight loss, no weight gain Ears, nose, mouth and throat: no ear pain Cardiovascular: shortness of breath, no chest pain Respiratory: no cough, no cough with sputum Gastrointestinal: no abdominal pain Genitourinary Male: no hematuria Rectal: no pain Musculoskeletal: no neck pain Integumentary: no rash Neurological: no paralysis Psychiatric: anxiety Endocrine: no cold intolerance, no heat intolerance Hematologic/Lymphatic: no easy bruising, no easy bleeding Allergic/Immunologic: no urticaria Exam - Constitutional Vitals: Temp Pulse Resp BP Pulse Ox 98.2 F 63 12 210/112 95 10/01/16 14:30 10/01/16 16:05 10/01/16 16:05 10/01/16 17:52 10/01/16 16:05 General appearance: Present: mild distress - EENT Eyes: Present: PERRL ENT: hearing intact, clear oral mucosa - Neck Neck: Present: supple, normal ROM - Respiratory Respiratory effort: labored Respiratory: bilateral: diminished, rhonchi - Cardiovascular Heart Sounds: Present: S1 & S2. Absent: rub, click - Extremities Extremities: pulses symmetrical, No edema Extremity abnormal: edema Peripheral Pulses: within normal limits - Abdominal General gastrointestinal: Present: soft, non-tender, non-distended, normal bowel sounds Male genitourinary: Present: normal - Integumentary Integumentary: Present: clear, warm, dry - Musculoskeletal Musculoskeletal: gait normal, strength equal bilaterally - Psychiatric Psychiatric: appropriate mood/affect, intact judgment & insight - Neurologic Neurologic: CNII-XII intact, moves all extremities Results - Labs CBC & Chem 7: 10/01/16 14:59 10/02/16 05:30 Labs: Abnormal lab results 10/01/16 10/01/16 10/01/16 Range/Units 14:59 14:59 16:14 RBC 3.35 L (3.65-5.03) M/mm3 Hgb 10.9 L (11.8-15.2) gm/dl Hct 33.3 L (35.5-45.6) % MCV 99 H (84-94) fl MCH 33 H (28-32) pg RDW 19.2 H (13.2-15.2) % Eos % (Auto) 8.8 H (0.0-4.3) % Lymph # 1.0 L (1.2-5.4) K/mm3 Eos # 0.6 H (0.0-0.4) K/mm3 Seg Neutrophils % 72.4 H (40.0-70.0) % Sodium 147 H (137-145) mmol/L Potassium 8.6 H* (3.6-5.0) mmol/L Carbon Dioxide 17 L (22-30) mmol/L BUN 106 H (9-20) mg/dL Creatinine 20.4 H (0.8-1.5) mg/dL Troponin T 0.084 H (0.00-0.029) ng/mL NT-Pro-B Natriuret Pep 03065 H (0-450) pg/mL HDL Cholesterol 77 H (40-59) mg/dL Assessment and Plan - Patient Problems (1) Acute respiratory failure Current Visit: Yes Status: Acute Qualifiers: Respiratory failure complication: R Plan to address problem: Supplemental oxygen, nebs, pulmonary toilet, NIPPV as clinically indicated The high probability of a clinically significant, sudden or life threatening deterioration of the [pulmonary,endocrine, renal] system(s) required my full and direct attention, intervention and personal management. The aggregate critical care time was [65] minutes. This time is in addition to time spent performing reported procedures but includes the following: [x] Data Review and interpretation [x] Patient assessment and monitoring of vital signs [x] Documentation [x] Medication orders and management (2) End stage renal disease on dialysis Current Visit: Yes Status: Acute Plan to address problem: Nephrology consulted, dialysis as per renal team (3) Hypertensive urgency Current Visit: Yes Status: Acute Plan to address problem: Monitor BP q shift, continue current therapy, Targed BP overnight 165-180 (4) Noncompliance Current Visit: Yes Status: Acute Plan to address problem: Pt counseled (5) Metabolic acidosis Current Visit: Yes Status: Acute Plan to address problem: Supportive care, repeat bmp, dialysis as per renal team. (6) DVT prophylaxis Current Visit: Yes Status: Acute
[2016-10-01] MEDS ORDERED: DULCOLAX PR PRN (18:06)
[2016-10-01] MEDS ORDERED: TYLENOL PO PRN (18:06)
[2016-10-01] MEDS ORDERED: MILK OF MAGNESIA PO PRN (18:06)
[2016-10-01] MEDS ORDERED: APRESOLINE ONE (22:46)
--- NOTE | 2016-10-01 22:57 | Event Note ---
Date: 10/01/16 Called by HD nurse. Pts BP remained high systolic >230 despite dialysis and IV bolus hydrazine. Pt will need to be admitted to ICU for Cardene drip. And also repeat potassium level 1 hr after completion of dialysis. Discussed with ICU charge nurse, house supervision and Dr Kay. Transfer pt to ICU. Orders placed for cardene drip and repeat potassium. RN to call if repeat potassium > 5.5.
[2016-10-01] MEDS ORDERED: CARDENE 50 MG in NACL 0.9% 250ML 230 ML IV SCH (23:00)
[2016-10-01] MEDS: ZOFRAN IV PRN (23:53)
[2016-10-02 00:55] LABS: BUN/Creatinine Ratio 4.41; Calcium 8.9 mg/dL (8.4-10.2); Chloride 95.1 mmol/L (98-107); Potassium 3.9 mmol/L (3.6-5.0)
[2016-10-02] MEDS: PROCARDIA XL PO SCH ×3 (07:56→22:16)
--- NOTE | 2016-10-02 10:38 | Progress Note ---
Assessment and Plan Assessment and plan: 50 YO Male with HIV,ESRD on HD(M,W,F), HTN presents to ED for evaluation. Pt states that he feels swollen, and has been experiencing difficulty breathing for the past 5 days with worsening symptoms over the past day. Pt acknowledges noncompliance with dialysis for the past week. Pt denies fever, chills, CP, Palpitations, NVD, syncope, productive cough or recent ill contacts. Pt seen and evaluated in ED and found to be in severe respiratory distress. Pt placed on supplemental oxygen. (1) Acute respiratory failure Supplemental oxygen, nebs, pulmonary toilet, NIPPV as clinically indicated, due to fluid overload, and pulmonary venous congestion, fluid being removed through dialysis The high probability of a clinically significant, sudden or life threatening deterioration of the [pulmonary,endocrine, renal] system(s) required my full and direct attention, intervention and personal management. The aggregate critical care time was [65] minutes. This time is in addition to time spent performing reported procedures but includes the following: [x] Data Review and interpretation [x] Patient assessment and monitoring of vital signs [x] Documentation [x] Medication orders and management (2) End stage renal disease on dialysis Current Visit: Yes Status: Acute Plan to address problem: Nephrology consulted, dialysis as per renal team (3) Hypertensive urgency Patient now off the Cardene drip, continue to transition to oral medications (4) Noncompliance Current Visit: Yes Status: Acute Plan to address problem: Pt counseled (5) DVT prophylaxis Patient is allergic to heparin, continue aspirin and SCDs History Interval history: The patient has received hemodialysis and since then his shortness of breath has improved. He admits to poor compliance with dialysis Hospitalist Physical - Physical exam Narrative exam: General: Patient appears well in no distress HEENT: MMM, EOMI cardiac: S1-S2 heard lungs: Bibasilar crackles abdomen: soft, nontender, nondistended bowel sounds positive extremities: no edema clubbing or cyanosis Skin: no rash or lesion Neuro: no focal deficit Psych: appropriate behavior and mood, cognition intact - Constitutional Vitals: Temp Pulse Resp BP Pulse Ox 98.4 F 74 14 175/87 100 10/02/16 08:00 10/02/16 08:21 10/02/16 08:21 10/02/16 08:21 10/02/16 08:21 General appearance: Present: mild distress Results - Labs CBC & Chem 7: 10/01/16 14:59 10/02/16 05:30 Labs: Laboratory Last Values WBC 7.0 K/mm3 (4.5-11.0) 10/01/16 14:59 RBC 3.35 M/mm3 (3.65-5.03) L 10/01/16 14:59 Hgb 10.9 gm/dl (11.8-15.2) L 10/01/16 14:59 Hct 33.3 % (35.5-45.6) L 10/01/16 14:59 MCV 99 fl (84-94) H 10/01/16 14:59 MCH 33 pg (28-32) H 10/01/16 14:59 MCHC 33 % (32-34) 10/01/16 14:59 RDW 19.2 % (13.2-15.2) H 10/01/16 14:59 Plt Count 203 K/mm3 (140-440) 10/01/16 14:59 Lymph % (Auto) 13.7 % (13.4-35.0) 10/01/16 14:59 Payne % (Auto) 3.7 % (0.0-7.3) 10/01/16 14:59 Eos % (Auto) 8.8 % (0.0-4.3) H 10/01/16 14:59 Baso % (Auto) 1.4 % (0.0-1.8) 10/01/16 14:59 Lymph # 1.0 K/mm3 (1.2-5.4) L 10/01/16 14:59 Payne # 0.3 K/mm3 (0.0-0.8) 10/01/16 14:59 Eos # 0.6 K/mm3 (0.0-0.4) H 10/01/16 14:59 Baso # 0.1 K/mm3 (0.0-0.1) 10/01/16 14:59 Seg Neutrophils % 72.4 % (40.0-70.0) H 10/01/16 14:59 Seg Neutrophils # 5.1 K/mm3 (1.8-7.7) 10/01/16 14:59 Sodium 147 mmol/L (137-145) H 10/01/16 14:59 Potassium 4.8 mmol/L (3.6-5.0) D 10/02/16 05:30 Chloride 105.0 mmol/L (98-107) 10/01/16 14:59 Carbon Dioxide 23 mmol/L (22-30) 10/02/16 00:21 Anion Gap 34 mmol/L 10/01/16 14:59 BUN 45 mg/dL (9-20) H 10/02/16 00:21 Creatinine 10.2 mg/dL (0.8-1.5) H 10/02/16 00:21 Estimated GFR 7 ml/min 10/02/16 00:21 BUN/Creatinine Ratio 4.41 % 10/02/16 00:21 Glucose 76 mg/dL (75-100) 10/02/16 00:21 POC Glucose 72 (70-105) 10/01/16 23:43 Calcium 8.9 mg/dL (8.4-10.2) 10/02/16 00:21 Troponin T 0.084 ng/mL (0.00-0.029) H 10/01/16 16:14 NT-Pro-B Natriuret Pep 71534 pg/mL (0-450) H 10/01/16 16:14 Triglycerides 149 mg/dL (2-149) 10/01/16 16:14 Cholesterol 179 mg/dL (50-199) 10/01/16 16:14 LDL Cholesterol Direct 73 mg/dL (50-130) 10/01/16 16:14 HDL Cholesterol 77 mg/dL (40-59) H 10/01/16 16:14 Cholesterol/HDL Ratio 2.32 % 10/01/16 16:14
[2016-10-02] MEDS: CARDURA PO SCH ×2 (11:07→22:16)
--- NOTE | 2016-10-02 11:25 | Progress Note ---
Assessment and Plan 1. Severe hyperkalemia 2. ESRD on HD 3. Malignant HTN 2/2 missed HD 4. AG metabolic acidosis 2/2 uremia/missed HD 5. SOB 2/2 fluid overload 6. Non compliance with dialysis 7. Anemia of ESRD Plan: Emergency dialysis 10/01 Potassium improved with dialysis BP also improving. Wean off cardene drip Started on oral hydralazine 100 TID, Nifedipine 60 BID and Losartan 100 mg daily Can transfer out of ICU in am if BP remains stable off Cardene Subjective Date of service: 10/02/16 Interval history: Feels better, less SOB Objective - Vital Signs Vital signs: Vital Signs - 12hr 10/01/16 10/01/16 10/01/16 23:26 23:30 23:40 Temperature Pulse Rate 84 79 83 Respiratory 19 21 22 Rate Blood Pressure 137/105 137/105 O2 Sat by Pulse 96 95 Oximetry 10/01/16 10/01/16 10/02/16 23:50 23:51 00:00 Temperature Pulse Rate 86 78 Respiratory 21 19 Rate Blood Pressure 234/109 O2 Sat by Pulse 91 99 98 Oximetry 10/02/16 10/02/16 10/02/16 00:08 00:11 00:21 Temperature 98.7 F Pulse Rate 79 92 H Respiratory 19 21 Rate Blood Pressure 234/109 191/102 O2 Sat by Pulse 100 98 Oximetry 10/02/16 10/02/16 10/02/16 00:30 00:40 00:50 Temperature Pulse Rate 77 79 79 Respiratory 20 19 20 Rate Blood Pressure 167/85 167/85 177/81 O2 Sat by Pulse 91 93 98 Oximetry 10/02/16 10/02/16 10/02/16 01:00 01:11 01:21 Temperature Pulse Rate 80 80 83 Respiratory 16 16 16 Rate Blood Pressure 183/82 183/82 183/82 O2 Sat by Pulse 97 99 99 Oximetry 10/02/16 10/02/16 10/02/16 01:30 01:41 01:51 Temperature Pulse Rate 81 78 76 Respiratory 16 17 14 Rate Blood Pressure 154/68 154/68 152/93 O2 Sat by Pulse 96 98 98 Oximetry 10/02/16 10/02/16 10/02/16 02:01 02:11 02:21 Temperature Pulse Rate 77 75 78 Respiratory 15 17 16 Rate Blood Pressure 152/93 158/80 164/79 O2 Sat by Pulse 98 96 99 Oximetry 10/02/16 10/02/16 10/02/16 02:30 02:41 02:49 Temperature Pulse Rate 78 76 79 Respiratory 14 16 Rate Blood Pressure 164/82 164/82 O2 Sat by Pulse 98 99 Oximetry 10/02/16 10/02/16 10/02/16 02:51 03:00 03:11 Temperature Pulse Rate 74 74 75 Respiratory 15 16 15 Rate Blood Pressure 143/78 150/76 150/76 O2 Sat by Pulse 99 98 99 Oximetry 10/02/16 10/02/16 10/02/16 03:21 03:30 03:41 Temperature Pulse Rate 76 75 74 Respiratory 13 14 13 Rate Blood Pressure 157/83 147/76 147/76 O2 Sat by Pulse 99 97 99 Oximetry 10/02/16 10/02/16 10/02/16 03:51 04:00 04:08 Temperature 99.3 F Pulse Rate 75 78 Respiratory 14 12 Rate Blood Pressure 145/77 152/79 O2 Sat by Pulse 99 97 Oximetry 10/02/16 10/02/16 10/02/16 04:11 04:21 04:30 Temperature Pulse Rate 75 74 74 Respiratory 14 13 14 Rate Blood Pressure 152/79 148/75 141/78 O2 Sat by Pulse 99 99 97 Oximetry 10/02/16 10/02/16 10/02/16 04:41 04:51 05:00 Temperature Pulse Rate 75 76 73 Respiratory 14 14 13 Rate Blood Pressure 141/78 143/76 149/76 O2 Sat by Pulse 99 99 97 Oximetry 10/02/16 10/02/16 10/02/16 05:11 05:21 05:31 Temperature Pulse Rate 74 75 77 Respiratory 13 11 L 17 Rate Blood Pressure 149/76 149/80 125/99 O2 Sat by Pulse 99 98 95 Oximetry 10/02/16 10/02/16 10/02/16 05:41 05:51 06:00 Temperature Pulse Rate 73 73 73 Respiratory 13 14 14 Rate Blood Pressure 125/99 156/77 163/82 O2 Sat by Pulse 94 94 91 Oximetry 10/02/16 10/02/16 10/02/16 06:11 06:21 06:30 Temperature Pulse Rate 70 72 70 Respiratory 14 14 14 Rate Blood Pressure 163/82 162/80 157/81 O2 Sat by Pulse 100 100 97 Oximetry 10/02/16 10/02/16 10/02/16 06:41 06:51 07:00 Temperature Pulse Rate 71 69 70 Respiratory 14 14 14 Rate Blood Pressure 157/81 152/80 171/84 O2 Sat by Pulse 100 100 98 Oximetry 10/02/16 10/02/16 10/02/16 07:11 07:21 07:30 Temperature Pulse Rate 71 71 70 Respiratory 15 14 12 Rate Blood Pressure 171/84 180/85 179/88 O2 Sat by Pulse 100 100 98 Oximetry 10/02/16 10/02/16 10/02/16 07:41 07:51 07:53 Temperature Pulse Rate 69 69 Respiratory 13 14 Rate Blood Pressure 179/88 173/86 O2 Sat by Pulse 100 100 98 Oximetry 10/02/16 10/02/16 10/02/16 08:00 08:11 08:21 Temperature 98.4 F Pulse Rate 70 70 74 Respiratory 13 12 14 Rate Blood Pressure 175/87 175/87 175/87 O2 Sat by Pulse 97 100 100 Oximetry 10/02/16 10/02/16 10/02/16 08:31 08:41 08:51 Temperature Pulse Rate 70 70 67 Respiratory 14 15 13 Rate Blood Pressure 178/94 178/94 183/92 O2 Sat by Pulse 100 100 100 Oximetry 10/02/16 10/02/16 10/02/16 09:00 09:11 09:21 Temperature Pulse Rate 66 65 67 Respiratory 13 15 13 Rate Blood Pressure 176/89 176/89 172/86 O2 Sat by Pulse 99 100 100 Oximetry 10/02/16 10/02/16 10/02/16 09:30 09:41 09:51 Temperature Pulse Rate 67 90 Respiratory 15 15 Rate Blood Pressure 170/86 170/86 151/78 O2 Sat by Pulse 98 100 100 Oximetry 10/02/16 10/02/16 10/02/16 10:00 10:11 10:21 Temperature Pulse Rate Respiratory Rate Blood Pressure 156/84 156/84 173/95 O2 Sat by Pulse 98 100 100 Oximetry 10/02/16 10/02/16 10/02/16 10:30 10:41 10:51 Temperature Pulse Rate 59 L 71 54 L Respiratory 13 14 15 Rate Blood Pressure 161/83 161/83 130/82 O2 Sat by Pulse 99 98 94 Oximetry 10/02/16 11:07 Temperature Pulse Rate 55 L Respiratory Rate Blood Pressure 130/82 O2 Sat by Pulse Oximetry - General Appearance General appearance: well-developed, well-nourished, appears stated age EENT: PERRL, mucous membranes moist Neck: no JVD, no thyromegaly, no carotid bruit, supple Respiratory: Present: Clear to Ascultation. Absent: Wheezes Cardiology: regular, normal heart rate, S1S2, no murmurs Gastrointestinal: normoactive bowel sounds, no tenderness Integumentary: no rash, warm and dry Neurologic: no focal deficit, alert and oriented x3, reflexes 2+ and symmetric, gait normal, strength 5/5 Musculoskeletal: other (no deformitiesm clubbing , has RUE AVF with + thrill/ bruits ) Psychiatric: mood/affect appropriate, cooperative - Lab 10/01/16 14:59 10/02/16 05:30 Most recent lab results Calcium 8.9 mg/dL (8.4-10.2) 10/02/16 00:21
[2016-10-02] MEDS: ZOFRAN IV PRN (11:39)
[2016-10-02] MEDS: COLACE PO SCH (14:20)
[2016-10-02] MEDS: APRESOLINE PO SCH ×2 (14:20→20:43)
[2016-10-02] MEDS: COZAAR PO SCH (14:20)
--- NOTE | 2016-10-02 15:44 | Consultation ---
History of Present Illness Consult date: 10/02/16 Requesting physician: PHILIPPE LEE Reason for consult: other (Hypertensive Urgency; ESRD on Dialysis) History of present illness: PULMONARY/CCM CONSULT NOTE (Full dictation # [id number]) Please see dictated notes for full details Past History Past Medical History: ESRD, HIV/AIDS, hypertension Past Surgical History: Other (AVF) Social history: single Family history: hypertension Medications and Allergies Allergies Allergy/AdvReac Type Severity Reaction Status Date / Time cephalexin monohydrate AdvReac Itching Verified 10/01/16 14:35 [From Keflex] heparin AdvReac Unknown Verified 10/01/16 14:35 Sulfa (Sulfonamide AdvReac Hives Verified 10/01/16 14:35 Antibiotics) Home Medications Medication Instructions Recorded Confirmed Last Taken Type Aspirin [Adult Low Dose Aspirin EC] 81 mg PO DAILY 10/01/16 10/01/16 09/30/16 History Calcitriol [Rocaltrol] 1 mcg PO QDAY 10/01/16 10/01/16 09/30/16 History Darunavir [Prezista] 800 mg PO QDAY 10/01/16 10/01/16 09/30/16 History Docusate Sodium [Dok] 200 mg PO TID 10/01/16 10/01/16 09/30/16 History Dolutegravir Sodium [Tivicay] 50 mg PO DAILY 10/01/16 10/01/16 09/30/16 History Doxazosin [Cardura] 4 mg PO BID 10/01/16 10/01/16 09/30/16 History Etravirine [Intelence] 400 mg PO DAILY 10/01/16 10/01/16 09/30/16 History Losartan [Cozaar] 100 mg PO QDAY 10/01/16 10/01/16 09/30/16 History NIFEdipine [Nifedipine ER] 60 mg PO BID 10/01/16 10/01/16 09/30/16 History Ritonavir [Norvir] 100 mg PO QDAY 10/01/16 10/01/16 09/30/16 History hydrALAZINE [Apresoline TAB] 100 mg PO TID 10/01/16 10/01/16 09/30/16 History Active Meds: Active Medications Acetaminophen (Tylenol) 650 mg PO Q4H PRN PRN Reason: Pain MILD(1-3)/Fever >100.5/[place] Aspirin (Halfprin Ec) 81 mg PO DAILY [facility] Bisacodyl (Dulcolax) 10 mg ND QDAY PRN PRN Reason: Constipation unrelieved by [facility] Calcitriol (Rocaltrol) 1 mcg PO QDAY [facility] Darunavir (Prezista) 800 mg PO QDAY [facility] Docusate Sodium (Colace) 200 mg PO TID [facility] Last Admin: 10/02/16 14:20 Dose: 200 mg Doxazosin Mesylate (Cardura) 4 mg PO BID [facility] Last Admin: 10/02/16 11:07 Dose: 4 mg Hydralazine HCl (Apresoline) 100 mg PO TID [facility] Last Admin: 10/02/16 14:20 Dose: 100 mg Sodium Chloride (Nacl 0.9%) 100 mls @ 999 mls/hr IV BERNARDA PRN PRN Reason: Hypotension Nicardipine HCl 50 mg/ Sodium (Chloride) 250 mls @ 25 mls/hr IV TITR DAVIDSON; 5 MG/ HR PRN Reason: Protocol Last Titration: 10/02/16 05:19 Dose: 0 mg/hr, 0 mls/hr Losartan Potassium (Cozaar) 100 mg PO QDAY [facility] Last Admin: 10/02/16 14:20 Dose: 100 mg Magnesium Hydroxide (Milk Of Magnesia) 30 ml PO Q4H PRN PRN Reason: Constipation Miscellaneous Medication (Dolutegravir Sodium [Tivicay]) 50 mg PO DAILY [facility] Miscellaneous Medication (Etravirine [Intelence]) 400 mg PO DAILY [facility] Nifedipine (Procardia Xl) 60 mg PO Q12HR [facility] Last Admin: 10/02/16 10:34 Dose: 60 mg Ondansetron HCl (Zofran) 4 mg IV Q8H PRN PRN Reason: N/V unrelieved by Reglan Last Admin: 10/02/16 11:39 Dose: 4 mg Ritonavir (Norvir) 100 mg PO QDAY [facility] Physical Examination Vital signs: Vital Signs Temp Pulse Resp BP Pulse Ox 98.2 F 45 L 24 226/102 100 10/01/16 14:30 10/01/16 14:30 10/01/16 14:30 10/01/16 14:30 10/01/16 14:30 Results - Laboratory Findings CBC and BMP: 10/01/16 14:59 10/02/16 05:30 Abnormal lab findings: Abnormal Labs 10/02/16 00:21 BUN 45 H Creatinine 10.2 H
[2016-10-02] MEDS: PEPCID PO SCH (20:44)
[2016-10-02] MEDS ORDERED: NACL 0.9% 100 ML IV PRN (22:07)
[2016-10-02] MEDS ORDERED: ASPIRIN PO ONE (22:48)
--- NOTE | 2016-10-03 | Consultation ---
CONSULTING PHYSICIAN: Dr. Lowry, the hatchery attendant. REASON FOR CONSULTATION: Hypertensive emergency, need for IV Cardene drip. CHIEF COMPLAINT AND HISTORY OF PRESENT ILLNESS: The patient is a 50-year-old -Spanish male with past medical history significant amongst other things for being HIV positive and associated end-stage renal disease, on dialysis Saturday, Saturday and Saturday. He came to the Emergency Room complaining of feeling swollen, bloated, short of breath. He admits to missing his dialysis sessions. He was en route [place] to the [place] area, had some trouble with transportation and that is how he ended up missing his dialysis sessions. He was evaluated in the Emergency Room. Apparently, he had missed about 2-3 sessions and was found to be significantly hypertensive, but also needing emergent dialysis. Despite the dialysis, his blood pressures remained high. He did not respond to IV medications and a decision was made to start him on a IV Cardene drip, hence the consult request. When I had stopped by to see him, he was doing better. He denied any chest pains at the time. He denied fevers or chills. His shortness of breath was getting much better since had been dialyzed. He denied any headaches. He denied any new onset focal symptoms. He denied any syncope or near syncope. Now with regards to tobacco use/abuse history, he describes himself as a never smoker. That really is as much of the history of presentation as I have. PAST MEDICAL HISTORY: Hypertension, chronic kidney disease, end-stage renal disease on dialysis, is HIV positive. PAST SURGICAL HISTORY: He has had an AV fistula placed in the right upper extremity. MEDICATIONS: He was on at the time I stopped by to see him, according to the medication administration record included the following: Tylenol 650 mg p.o. q. 4 hours p.r.n. mild pain, aspirin 81 mg p.o. daily, p.r.n. Dulcolax, Rocaltrol 1 mcg p.o. daily, Prezista 800 mg p.o. daily, Colace 200 mg p.o. t.i.d., Cardura 4 mg p.o. b.i.d., hydralazine 100 mg p.o. t.i.d., Cozaar 100 mg p.o. daily, p.r.n. milk of magnesia, a nonformulary medication 50 mg p.o. daily, another nonformulary medication 400 mg p.o. daily. I believe this is highly active antiretroviral therapy. Nicardipine drip was going at 5 mg per hour, Procardia 60 mg p.o. q. 12 hours, Zofran 4 mg IV q. 8 hours p.r.n. nausea and vomiting, and Norvir 100 mg p.o. daily. ALLERGIES: CEPHALEXIN, HEPARIN AND SULFA ANTIBIOTICS. Nature of this allergy is unknown. DIET: Well-built gentleman. Denies acute weight loss or gain preceding few weeks to months. FAMILY AND SOCIAL HISTORY: Lives in the community. Denies alcohol, tobacco, or illicit drug use or abuse. REVIEW OF SYSTEMS: No loss of consciousness. No new onset seizures. He had increased shortness of breath. He had a cough. He denied hemoptysis. Denies palpitations. Denies gross hematochezia or melena. Denies gross hematuria or dysuria. A complete review of systems, 13-system review of systems obtained. Pertinent positives and/or negatives as in body of history above, otherwise they are noncontributory. PHYSICAL EXAMINATION: VITAL SIGNS: At presentation in the Emergency Room, he was afebrile, temperature 98.5, pulse was 45, respiratory rate was 24, blood pressure was 226/102, oxygen sats were 100%, inspired oxygen concentration at the time was not recorded. HEAD, EYES, EARS, NOSE AND THROAT: Pupils are equal, round, about 3-4 mm, reactive to light. Extraocular muscle movements are intact. Oropharynx is a Mallampati #3 oropharynx with mild oropharyngeal pallor. Grossly, there were no palpable lymph nodes in the supraclavicular or submandibular lymph node chains. No gross jugular venous distention. LUNGS: Auscultation of both lung weller significant for bibasilar rales. No wheezing. HEART: Heart sounds 1 and 2 are heard. They were regular in rate and rhythm at time of my evaluation. ABDOMEN: Soft, full, bowel sounds are positive, nontender. EXTREMITIES: Without overt digital clubbing, cyanosis, or pedal edema. NEUROLOGIC: The exam was grossly nonfocal. LABORATORY DATA: From my review are as follows: White cell count at presentation was 7000, hemoglobin 10.9, hematocrit 33.3, platelet count 203. Serum sodium was 147, potassium 8.6, chloride 105, bicarbonate 17, BUN 106, creatinine 20.4, glucose 78. BNP was elevated. Troponin 0.084. Radiographic studies are being reviewed, I am pulling up the films. I have reviewed the radiologist's interpretation and essentially he describes borderline cardiomegaly with bibasilar subsegmental atelectasis. No pneumonia, no CHF. ASSESSMENT AND PLAN: We have a middle-aged gentleman in with an acute episode of hypertensive emergency essentially. Certainly, should improve with dialysis amongst other things, but certainly did need IV Cardene at the time of request. So, from a respiratory standpoint, supplemental oxygen will be offered to keep sats greater than or equal to about 90%. Aspiration precautions will be maintained. Oxygen will be weaned as mentioned to keep sats greater than 90% and if he does develop increasing shortness of breath, bilevel positive airway pressure ventilation therapy will be offered. I do feel he should do better post-dialysis. From a cardiovascular standpoint, I note the troponin is in the setting of end-stage renal disease. It is really unclear if that is true non-ST elevation [place], also in the setting of his significantly elevated blood pressures. I will repeat the troponin level just to see which direction we are trending. Cardiology evaluation will be at the behest of the attending physician. A 12-lead EKG will be evaluated. From a GI and nutritional standpoint, oral nutrition will be the feeding modality of choice. I am going to put him on GI prophylaxis. Aspiration precautions will be maintained. From a renal standpoint, he is getting dialyzed and that is appropriate. He is also getting his p.o. oral antihypertensive medications introduced and hopefully we can get him off the Cardene drip. Dialysis decisions will otherwise be per the hatchery attendant. Repeat serum potassium has been ordered and is at 3.9. From an infectious disease standpoint, really despite the overall symptomatology, no signs or symptoms of overwhelming sepsis. No acute indication for anti-infective therapy. We will follow him clinically. From a [employer] standpoint, the exam is grossly nonfocal. No acute indication for neuro imaging. We will follow him clinically. From a general and hospital healthcare maintenance standpoint, he is going to be placed on GI prophylaxis now. I am also going to put him on DVT prophylaxis in the form of heparin. Flu and pneumonia vaccination will be per protocol. Thank you very much for the consult, Dr. Lowry. We will follow along and make further recommendations as picture progresses/becomes clearer. At this time, I spent about 30-35 minutes of critical care time without overlap excluding any procedural time that may be necessary. He is critically ill on vasoactive medications including Cardene and at risk for further deterioration including if his blood pressures are not controlled. JOB# [id number] JANIYA/NTS
[2016-10-03] MEDS: COLACE PO SCH ×4 (08:30→14:33)
[2016-10-03] MEDS: COZAAR PO SCH (09:01)
[2016-10-03] MEDS: CARDURA PO SCH (09:01)
[2016-10-03] MEDS: PEPCID PO SCH (09:01)
[2016-10-03] MEDS: APRESOLINE PO SCH ×2 (09:02→14:35)
[2016-10-03] MEDS: PROCARDIA XL PO SCH (09:02)
[2016-10-03] MEDS ORDERED: NORVIR PO SCH (10:00)
[2016-10-03] MEDS ORDERED: PREZISTA PO SCH (10:00)
[2016-10-03] MEDS ORDERED: ETRAVIRINE PO SCH (10:00)
[2016-10-03] MEDS ORDERED: NON-FORMULARY (Dolutegravir Sodium [Tivicay] 50 MG) PO SCH (10:00)
[2016-10-03] MEDS ORDERED: NON-FORMULARY (Losartan [Cozaar] 100 MG) PO SCH (11:00)
[2016-10-03] MEDS ORDERED: HALFPRIN EC PO SCH (11:00)
[2016-10-03] MEDS ORDERED: ROCALTROL PO SCH (11:00)
--- NOTE | 2016-10-03 12:24 | Progress Note ---
Assessment and Plan - Patient Problems (1) Hypertensive urgency Current Visit: Yes Status: Acute Plan to address problem: - resolved - continue p.o. meds for HTN - better compliance with pill sand Dialysis counselled (2) End stage renal disease on dialysis Current Visit: Yes Status: Acute Plan to address problem: - getting dialyzed now - will defer to instrument assembler (3) Hyperkalemia Current Visit: Yes Status: Acute Plan to address problem: - resolved (4) Discharge planning issues Current Visit: Yes Status: Acute Plan to address problem: - ok to transfer out of ICU now Subjective Date of service: 10/03/16 Principal diagnosis: Hypertensive Emergency; ESRD on Dialysis Interval history: Seen and examined at bedside; 24 hour events reviewed; nursing and respiratory care staff consulted; remains on multiple vasopressors; dialysis ongoing now; looks and feels better; denies acute chest pains or increased SOB Objective Vital Signs - 12hr 10/03/16 10/03/16 10/03/16 00:30 00:41 00:51 Temperature Pulse Rate 68 68 68 Pulse Rate [ Apical] Pulse Rate [ From Monitor] Respiratory 14 13 15 Rate Blood Pressure 162/82 162/82 162/82 O2 Sat by Pulse 95 100 99 Oximetry O2 Sat by Pulse Oximetry [ Bilateral Throughout] 10/03/16 10/03/16 10/03/16 01:00 01:11 01:21 Temperature Pulse Rate 69 66 71 Pulse Rate [ Apical] Pulse Rate [ From Monitor] Respiratory 14 14 8 L Rate Blood Pressure 167/84 167/84 167/84 O2 Sat by Pulse 93 96 100 Oximetry O2 Sat by Pulse Oximetry [ Bilateral Throughout] 10/03/16 10/03/16 10/03/16 01:30 01:41 01:51 Temperature Pulse Rate 69 71 75 Pulse Rate [ Apical] Pulse Rate [ From Monitor] Respiratory 14 16 14 Rate Blood Pressure 146/80 146/80 146/80 O2 Sat by Pulse 94 97 98 Oximetry O2 Sat by Pulse Oximetry [ Bilateral Throughout] 10/03/16 10/03/16 10/03/16 02:00 02:11 02:21 Temperature Pulse Rate 71 73 82 Pulse Rate [ Apical] Pulse Rate [ From Monitor] Respiratory 10 L 16 10 L Rate Blood Pressure 144/71 144/71 144/71 O2 Sat by Pulse 92 98 96 Oximetry O2 Sat by Pulse Oximetry [ Bilateral Throughout] 10/03/16 10/03/16 10/03/16 02:30 02:41 02:51 Temperature Pulse Rate 73 71 72 Pulse Rate [ Apical] Pulse Rate [ From Monitor] Respiratory 16 13 16 Rate Blood Pressure 140/72 140/72 140/72 O2 Sat by Pulse 92 96 97 Oximetry O2 Sat by Pulse Oximetry [ Bilateral Throughout] 10/03/16 10/03/16 10/03/16 03:00 03:11 03:21 Temperature Pulse Rate 69 72 73 Pulse Rate [ Apical] Pulse Rate [ From Monitor] Respiratory 8 L 10 L 10 L Rate Blood Pressure 140/74 140/74 140/74 O2 Sat by Pulse 100 98 98 Oximetry O2 Sat by Pulse Oximetry [ Bilateral Throughout] 10/03/16 10/03/16 10/03/16 03:30 03:41 03:51 Temperature Pulse Rate 72 72 78 Pulse Rate [ Apical] Pulse Rate [ From Monitor] Respiratory 14 16 12 Rate Blood Pressure 147/72 147/72 147/72 O2 Sat by Pulse 96 98 97 Oximetry O2 Sat by Pulse Oximetry [ Bilateral Throughout] 10/03/16 10/03/16 10/03/16 04:00 04:01 04:11 Temperature 98.8 F Pulse Rate 67 65 Pulse Rate [ Apical] Pulse Rate [ From Monitor] Respiratory 16 14 Rate Blood Pressure 151/75 151/75 O2 Sat by Pulse 96 99 Oximetry O2 Sat by Pulse Oximetry [ Bilateral Throughout] 10/03/16 10/03/16 10/03/16 04:21 04:30 04:41 Temperature Pulse Rate 69 68 69 Pulse Rate [ Apical] Pulse Rate [ From Monitor] Respiratory 15 16 14 Rate Blood Pressure 151/75 151/75 151/75 O2 Sat by Pulse 99 97 99 Oximetry O2 Sat by Pulse Oximetry [ Bilateral Throughout] 10/03/16 10/03/16 10/03/16 04:51 05:00 05:11 Temperature Pulse Rate 67 67 68 Pulse Rate [ Apical] Pulse Rate [ From Monitor] Respiratory 18 14 13 Rate Blood Pressure 151/75 149/72 149/72 O2 Sat by Pulse 98 96 98 Oximetry O2 Sat by Pulse Oximetry [ Bilateral Throughout] 10/03/16 10/03/16 10/03/16 05:21 05:31 05:41 Temperature Pulse Rate 71 67 77 Pulse Rate [ Apical] Pulse Rate [ From Monitor] Respiratory 19 11 L 20 Rate Blood Pressure 149/72 143/78 143/78 O2 Sat by Pulse 98 93 98 Oximetry O2 Sat by Pulse Oximetry [ Bilateral Throughout] 10/03/16 10/03/16 10/03/16 05:47 05:51 06:00 Temperature Pulse Rate 65 66 Pulse Rate [ Apical] Pulse Rate [ From Monitor] Respiratory 17 13 Rate Blood Pressure 143/78 151/81 O2 Sat by Pulse 97 98 89 Oximetry O2 Sat by Pulse Oximetry [ Bilateral Throughout] 10/03/16 10/03/16 10/03/16 06:11 06:21 06:30 Temperature Pulse Rate 69 65 70 Pulse Rate [ Apical] Pulse Rate [ From Monitor] Respiratory 15 15 14 Rate Blood Pressure 151/81 151/81 161/82 O2 Sat by Pulse 98 100 96 Oximetry O2 Sat by Pulse Oximetry [ Bilateral Throughout] 10/03/16 10/03/16 10/03/16 06:41 06:51 07:01 Temperature Pulse Rate 72 69 72 Pulse Rate [ Apical] Pulse Rate [ From Monitor] Respiratory 13 15 13 Rate Blood Pressure 161/82 161/82 173/83 O2 Sat by Pulse 96 99 98 Oximetry O2 Sat by Pulse Oximetry [ Bilateral Throughout] 10/03/16 10/03/16 10/03/16 07:11 07:21 07:30 Temperature Pulse Rate 69 67 64 Pulse Rate [ Apical] Pulse Rate [ From Monitor] Respiratory 15 13 14 Rate Blood Pressure 173/83 173/83 146/77 O2 Sat by Pulse 97 99 94 Oximetry O2 Sat by Pulse Oximetry [ Bilateral Throughout] 10/03/16 10/03/16 10/03/16 07:41 07:51 08:00 Temperature 98.4 F Pulse Rate 71 82 69 Pulse Rate [ Apical] Pulse Rate [ From Monitor] Respiratory 13 15 13 Rate Blood Pressure 146/77 146/77 164/80 O2 Sat by Pulse 100 98 94 Oximetry O2 Sat by Pulse Oximetry [ Bilateral Throughout] 10/03/16 10/03/16 10/03/16 08:11 08:18 08:21 Temperature Pulse Rate 70 90 Pulse Rate [ Apical] Pulse Rate [ From Monitor] Respiratory 14 18 Rate Blood Pressure 164/80 164/80 O2 Sat by Pulse 98 96 98 Oximetry O2 Sat by Pulse Oximetry [ Bilateral Throughout] 10/03/16 10/03/16 10/03/16 08:30 08:41 08:51 Temperature Pulse Rate 66 69 71 Pulse Rate [ Apical] Pulse Rate [ From Monitor] Respiratory 13 13 17 Rate Blood Pressure 155/79 155/79 155/79 O2 Sat by Pulse 96 99 99 Oximetry O2 Sat by Pulse Oximetry [ Bilateral Throughout] 10/03/16 10/03/16 10/03/16 08:54 09:00 09:01 Temperature Pulse Rate 68 69 Pulse Rate [ 59 L Apical] Pulse Rate [ 55 L From Monitor] Respiratory 15 Rate Blood Pressure 154/78 155/79 O2 Sat by Pulse 94 Oximetry O2 Sat by Pulse Oximetry [ Bilateral Throughout] 10/03/16 10/03/16 10/03/16 09:10 09:21 09:30 Temperature Pulse Rate 75 71 69 Pulse Rate [ Apical] Pulse Rate [ From Monitor] Respiratory 15 14 13 Rate Blood Pressure 154/78 154/78 158/78 O2 Sat by Pulse 100 99 95 Oximetry O2 Sat by Pulse Oximetry [ Bilateral Throughout] 10/03/16 10/03/16 10/03/16 09:41 09:51 10:00 Temperature Pulse Rate 72 72 68 Pulse Rate [ Apical] Pulse Rate [ From Monitor] Respiratory 20 14 15 Rate Blood Pressure 154/78 154/78 152/78 O2 Sat by Pulse 100 99 96 Oximetry O2 Sat by Pulse Oximetry [ Bilateral Throughout] 10/03/16 10/03/16 10/03/16 10:10 10:11 10:20 Temperature 98.4 F Pulse Rate 64 64 Pulse Rate [ Apical] Pulse Rate [ From Monitor] Respiratory 13 Rate Blood Pressure 144/79 158/79 149/79 O2 Sat by Pulse 100 Oximetry O2 Sat by Pulse 99 Oximetry [ Bilateral Throughout] 10/03/16 10/03/16 10/03/16 10:21 10:30 10:41 Temperature Pulse Rate 64 63 Pulse Rate [ Apical] Pulse Rate [ From Monitor] Respiratory 16 13 Rate Blood Pressure 149/79 146/81 146/81 O2 Sat by Pulse 99 96 99 Oximetry O2 Sat by Pulse Oximetry [ Bilateral Throughout] 10/03/16 10/03/16 10/03/16 10:45 10:51 11:00 Temperature Pulse Rate 62 66 62 Pulse Rate [ Apical] Pulse Rate [ From Monitor] Respiratory 11 L 16 Rate Blood Pressure 144/80 145/79 145/79 O2 Sat by Pulse 100 96 Oximetry O2 Sat by Pulse Oximetry [ Bilateral Throughout] 10/03/16 10/03/16 10/03/16 11:11 11:15 11:21 Temperature Pulse Rate 64 63 62 Pulse Rate [ Apical] Pulse Rate [ From Monitor] Respiratory 13 12 Rate Blood Pressure 145/79 143/77 144/81 O2 Sat by Pulse 100 100 Oximetry O2 Sat by Pulse Oximetry [ Bilateral Throughout] 10/03/16 10/03/16 10/03/16 11:30 11:45 12:00 Temperature Pulse Rate 69 66 74 Pulse Rate [ Apical] Pulse Rate [ From Monitor] Respiratory Rate Blood Pressure 144/81 147/81 142/82 O2 Sat by Pulse Oximetry O2 Sat by Pulse Oximetry [ Bilateral Throughout] Constitutional: no acute distress Eyes: non-icteric ENT: oropharynx moist Neck: supple, no lymphadenopathy Effort: normal Ascultation: Bilateral: clear Cardiovascular: regular rate and rhythm Gastrointestinal: normoactive bowel sounds, soft, non-tender, non-distended Integumentary: normal Extremities: no cyanosis, no edema, pulses normal, no ischemia or petechiae Neurologic: normal mental status, non-focal exam, pupils equal and round, motor strength normal and Psychiatric: mood appropriate, affect normal CBC and BMP: 10/01/16 14:59 10/02/16 05:30 Abnormal lab findings: Abnormal Labs 10/02/16 10/02/16 00:21 21:48 BUN 45 H Creatinine 10.2 H Troponin T 0.112 H* D
--- NOTE | 2016-10-03 13:29 | Progress Note ---
Hospitalist Physical - Constitutional Vitals: Temp Pulse Resp BP Pulse Ox 98.4 F 81 12 144/78 100 10/03/16 10:10 10/03/16 12:45 10/03/16 11:21 10/03/16 12:45 10/03/16 11:21 General appearance: Present: mild distress Results - Labs CBC & Chem 7: 10/01/16 14:59 10/02/16 05:30 Labs: Laboratory Last Values WBC 7.0 K/mm3 (4.5-11.0) 10/01/16 14:59 RBC 3.35 M/mm3 (3.65-5.03) L 10/01/16 14:59 Hgb 10.9 gm/dl (11.8-15.2) L 10/01/16 14:59 Hct 33.3 % (35.5-45.6) L 10/01/16 14:59 MCV 99 fl (84-94) H 10/01/16 14:59 MCH 33 pg (28-32) H 10/01/16 14:59 MCHC 33 % (32-34) 10/01/16 14:59 RDW 19.2 % (13.2-15.2) H 10/01/16 14:59 Plt Count 203 K/mm3 (140-440) 10/01/16 14:59 Lymph % (Auto) 13.7 % (13.4-35.0) 10/01/16 14:59 [place] % (Auto) 3.7 % (0.0-7.3) 10/01/16 14:59 Eos % (Auto) 8.8 % (0.0-4.3) H 10/01/16 14:59 Baso % (Auto) 1.4 % (0.0-1.8) 10/01/16 14:59 Lymph # 1.0 K/mm3 (1.2-5.4) L 10/01/16 14:59 [place] # 0.3 K/mm3 (0.0-0.8) 10/01/16 14:59 Eos # 0.6 K/mm3 (0.0-0.4) H 10/01/16 14:59 Baso # 0.1 K/mm3 (0.0-0.1) 10/01/16 14:59 Seg Neutrophils % 72.4 % (40.0-70.0) H 10/01/16 14:59 Seg Neutrophils # 5.1 K/mm3 (1.8-7.7) 10/01/16 14:59 Sodium 147 mmol/L (137-145) H 10/01/16 14:59 Potassium 4.8 mmol/L (3.6-5.0) D 10/02/16 05:30 Chloride 105.0 mmol/L (98-107) 10/01/16 14:59 Carbon Dioxide 23 mmol/L (22-30) 10/02/16 00:21 Anion Gap 34 mmol/L 10/01/16 14:59 BUN 45 mg/dL (9-20) H 10/02/16 00:21 Creatinine 10.2 mg/dL (0.8-1.5) H 10/02/16 00:21 Estimated GFR 7 ml/min 10/02/16 00:21 BUN/Creatinine Ratio 4.41 % 10/02/16 00:21 Glucose 76 mg/dL (75-100) 10/02/16 00:21 POC Glucose 72 (70-105) 10/01/16 23:43 Calcium 8.9 mg/dL (8.4-10.2) 10/02/16 00:21 Troponin T 0.112 ng/mL (0.00-0.029) H* D 10/02/16 21:48 NT-Pro-B Natriuret Pep 61840 pg/mL (0-450) H 10/01/16 16:14 Triglycerides 149 mg/dL (2-149) 10/01/16 16:14 Cholesterol 179 mg/dL (50-199) 10/01/16 16:14 LDL Cholesterol Direct 73 mg/dL (50-130) 10/01/16 16:14 HDL Cholesterol 77 mg/dL (40-59) H 10/01/16 16:14 Cholesterol/HDL Ratio 2.32 % 10/01/16 16:14
--- NOTE | 2016-10-03 13:34 | Discharge Summary ---
Providers - Providers Date of Admission: 10/01/16 17:26 Attending physician: SUNDAY GONGORA MD 10/01/16 22:48 Consult to Physician [CONS] Routine Consulting Provider: JOHNNY MARTINEZ Reason For Exam: hypertensive emergency-admission to ICU Place consult to:: Dr Martinez Notified:: Yes Was contact made?: Yes If yes, spoke with:: Dr Martinez Time called:: 14:47 Comment:: Spoken in person Primary care physician: [employer] Hospitalization Condition: Stable Hospital course: 50 YO Male with HIV,ESRD on HD(M,W,F), HTN presents to ED for evaluation. He presented with shortness of breath, admitted to missing hemodialysis. Stated that he missed it because he could not get transportation to dialysis and Recently moved to [place] did not have it set up properly. He received supplemental oxygen for shortness of breath, he was found to have pulmonary venous congestion and excessive fluid is removed via dialysis. He also found to have severely elevated blood pressure for which was on Cardene drip, he was transitioned to oral medications which were optimized. He was counseled about poor compliance with dialysis, case management was consulted and he organizes him outpatient dialysis and transportation through his insurance Medicaid. Patient was discharged home in much improved condition Discharge diagnoses Acute respiratory failure End-stage renal disease Pulmonary venous congestion Fluid overload Hypertensive urgency Nonadherence to medical treatment Disposition: DC-01 TO HOME OR SELFCARE Time spent for discharge: 32 minutes Core Measure Documentation - Palliative Care Palliative Care/ Comfort Measures: Not Applicable - Core Measures Any of the following diagnoses?: none Exam - Constitutional Vitals: Temp Pulse Resp BP Pulse Ox 98.4 F 65 12 158/85 100 10/03/16 10:10 10/03/16 13:30 10/03/16 11:21 10/03/16 13:30 10/03/16 11:21 General appearance: Present: no acute distress, well-nourished - EENT Eyes: Present: PERRL ENT: hearing intact, clear oral mucosa - Neck Neck: Present: supple, normal ROM - Respiratory Respiratory effort: normal Respiratory: bilateral: CTA - Cardiovascular Heart Sounds: Present: S1 & S2. Absent: rub, click - Extremities Extremities: pulses symmetrical, No edema Peripheral Pulses: within normal limits - Abdominal General gastrointestinal: Present: soft, non-tender, non-distended, normal bowel sounds Male genitourinary: Present: normal - Integumentary Integumentary: Present: clear, warm, dry - Musculoskeletal Musculoskeletal: gait normal, strength equal bilaterally - Psychiatric Psychiatric: appropriate mood/affect, intact judgment & insight - Neurologic Neurologic: CNII-XII intact, moves all extremities Plan Follow up with: PRIMARY CARE,MD [Primary Care Provider] - 3-5 Days Prescriptions: Aspirin [Adult Low Dose Aspirin EC] 81 mg PO DAILY #30 tablet. Calcitriol [Rocaltrol] 1 mcg PO QDAY #30 capsule Darunavir [Prezista] 800 mg PO QDAY #30 tablet Docusate Sodium [Dok] 200 mg PO TID #90 capsule Dolutegravir Sodium [Tivicay] 50 mg PO DAILY #30 tablet Doxazosin [Cardura] 4 mg PO BID #60 tablet Etravirine [Intelence] 400 mg PO DAILY #30 tablet hydrALAZINE [Apresoline TAB] 100 mg PO TID #90 tab Losartan [Cozaar] 100 mg PO QDAY #30 tablet NIFEdipine [Nifedipine ER] 60 mg PO BID #60 tab.er.[id number] Ritonavir [Norvir] 100 mg PO QDAY #30 tab
[2016-10-03 14:28] VITALS: BP 135/75
--- NOTE | 2016-10-03 15:28 | Progress Note ---
Assessment and Plan 1. Severe hyperkalemia 2. ESRD on HD 3. Malignant HTN 2/2 missed HD 4. AG metabolic acidosis 2/2 uremia/missed HD 5. SOB 2/2 fluid overload 6. Non compliance with dialysis 7. Anemia of ESRD Plan: BP improved. Off cardene drip POtassium also improved Discussed need for compliance with his HD schedules. Ok for d/c from renal perspective Subjective Date of service: 10/03/16 Principal diagnosis: Hypertensive Emergency; ESRD on Dialysis Interval history: Feels better, receiving dialysis Off cardene drip Objective - Vital Signs Vital signs: Vital Signs - 12hr 10/03/16 10/03/16 10/03/16 03:30 03:41 03:51 Temperature Pulse Rate 72 72 78 Pulse Rate [ Apical] Pulse Rate [ From Monitor] Respiratory 14 16 12 Rate Blood Pressure 147/72 147/72 147/72 O2 Sat by Pulse 96 98 97 Oximetry O2 Sat by Pulse Oximetry [ Bilateral Throughout] 10/03/16 10/03/16 10/03/16 04:00 04:01 04:11 Temperature 98.8 F Pulse Rate 67 65 Pulse Rate [ Apical] Pulse Rate [ From Monitor] Respiratory 16 14 Rate Blood Pressure 151/75 151/75 O2 Sat by Pulse 96 99 Oximetry O2 Sat by Pulse Oximetry [ Bilateral Throughout] 10/03/16 10/03/16 10/03/16 04:21 04:30 04:41 Temperature Pulse Rate 69 68 69 Pulse Rate [ Apical] Pulse Rate [ From Monitor] Respiratory 15 16 14 Rate Blood Pressure 151/75 151/75 151/75 O2 Sat by Pulse 99 97 99 Oximetry O2 Sat by Pulse Oximetry [ Bilateral Throughout] 10/03/16 10/03/16 10/03/16 04:51 05:00 05:11 Temperature Pulse Rate 67 67 68 Pulse Rate [ Apical] Pulse Rate [ From Monitor] Respiratory 18 14 13 Rate Blood Pressure 151/75 149/72 149/72 O2 Sat by Pulse 98 96 98 Oximetry O2 Sat by Pulse Oximetry [ Bilateral Throughout] 10/03/16 10/03/16 10/03/16 05:21 05:31 05:41 Temperature Pulse Rate 71 67 77 Pulse Rate [ Apical] Pulse Rate [ From Monitor] Respiratory 19 11 L 20 Rate Blood Pressure 149/72 143/78 143/78 O2 Sat by Pulse 98 93 98 Oximetry O2 Sat by Pulse Oximetry [ Bilateral Throughout] 10/03/16 10/03/16 10/03/16 05:47 05:51 06:00 Temperature Pulse Rate 65 66 Pulse Rate [ Apical] Pulse Rate [ From Monitor] Respiratory 17 13 Rate Blood Pressure 143/78 151/81 O2 Sat by Pulse 97 98 89 Oximetry O2 Sat by Pulse Oximetry [ Bilateral Throughout] 10/03/16 10/03/16 10/03/16 06:11 06:21 06:30 Temperature Pulse Rate 69 65 70 Pulse Rate [ Apical] Pulse Rate [ From Monitor] Respiratory 15 15 14 Rate Blood Pressure 151/81 151/81 161/82 O2 Sat by Pulse 98 100 96 Oximetry O2 Sat by Pulse Oximetry [ Bilateral Throughout] 10/03/16 10/03/16 10/03/16 06:41 06:51 07:01 Temperature Pulse Rate 72 69 72 Pulse Rate [ Apical] Pulse Rate [ From Monitor] Respiratory 13 15 13 Rate Blood Pressure 161/82 161/82 173/83 O2 Sat by Pulse 96 99 98 Oximetry O2 Sat by Pulse Oximetry [ Bilateral Throughout] 10/03/16 10/03/16 10/03/16 07:11 07:21 07:30 Temperature Pulse Rate 69 67 64 Pulse Rate [ Apical] Pulse Rate [ From Monitor] Respiratory 15 13 14 Rate Blood Pressure 173/83 173/83 146/77 O2 Sat by Pulse 97 99 94 Oximetry O2 Sat by Pulse Oximetry [ Bilateral Throughout] 10/03/16 10/03/16 10/03/16 07:41 07:51 08:00 Temperature 98.4 F Pulse Rate 71 82 69 Pulse Rate [ Apical] Pulse Rate [ From Monitor] Respiratory 13 15 13 Rate Blood Pressure 146/77 146/77 164/80 O2 Sat by Pulse 100 98 94 Oximetry O2 Sat by Pulse Oximetry [ Bilateral Throughout] 10/03/16 10/03/16 10/03/16 08:11 08:18 08:21 Temperature Pulse Rate 70 90 Pulse Rate [ Apical] Pulse Rate [ From Monitor] Respiratory 14 18 Rate Blood Pressure 164/80 164/80 O2 Sat by Pulse 98 96 98 Oximetry O2 Sat by Pulse Oximetry [ Bilateral Throughout] 10/03/16 10/03/16 10/03/16 08:30 08:41 08:51 Temperature Pulse Rate 66 69 71 Pulse Rate [ Apical] Pulse Rate [ From Monitor] Respiratory 13 13 17 Rate Blood Pressure 155/79 155/79 155/79 O2 Sat by Pulse 96 99 99 Oximetry O2 Sat by Pulse Oximetry [ Bilateral Throughout] 10/03/16 10/03/16 10/03/16 08:54 09:00 09:01 Temperature Pulse Rate 68 69 Pulse Rate [ 59 L Apical] Pulse Rate [ 55 L From Monitor] Respiratory 15 Rate Blood Pressure 154/78 155/79 O2 Sat by Pulse 94 Oximetry O2 Sat by Pulse Oximetry [ Bilateral Throughout] 10/03/16 10/03/16 10/03/16 09:10 09:21 09:30 Temperature Pulse Rate 75 71 69 Pulse Rate [ Apical] Pulse Rate [ From Monitor] Respiratory 15 14 13 Rate Blood Pressure 154/78 154/78 158/78 O2 Sat by Pulse 100 99 95 Oximetry O2 Sat by Pulse Oximetry [ Bilateral Throughout] 10/03/16 10/03/16 10/03/16 09:41 09:51 10:00 Temperature Pulse Rate 72 72 68 Pulse Rate [ Apical] Pulse Rate [ From Monitor] Respiratory 20 14 15 Rate Blood Pressure 154/78 154/78 152/78 O2 Sat by Pulse 100 99 96 Oximetry O2 Sat by Pulse Oximetry [ Bilateral Throughout] 10/03/16 10/03/16 10/03/16 10:10 10:11 10:20 Temperature 98.4 F Pulse Rate 64 64 Pulse Rate [ Apical] Pulse Rate [ From Monitor] Respiratory 13 Rate Blood Pressure 144/79 158/79 149/79 O2 Sat by Pulse 100 Oximetry O2 Sat by Pulse 99 Oximetry [ Bilateral Throughout] 10/03/16 10/03/16 10/03/16 10:21 10:30 10:41 Temperature Pulse Rate 64 63 Pulse Rate [ Apical] Pulse Rate [ From Monitor] Respiratory 16 13 Rate Blood Pressure 149/79 146/81 146/81 O2 Sat by Pulse 99 96 99 Oximetry O2 Sat by Pulse Oximetry [ Bilateral Throughout] 10/03/16 10/03/16 10/03/16 10:45 10:51 11:00 Temperature Pulse Rate 62 66 62 Pulse Rate [ Apical] Pulse Rate [ From Monitor] Respiratory 11 L 16 Rate Blood Pressure 144/80 145/79 145/79 O2 Sat by Pulse 100 96 Oximetry O2 Sat by Pulse Oximetry [ Bilateral Throughout] 10/03/16 10/03/16 10/03/16 11:11 11:15 11:21 Temperature Pulse Rate 64 63 62 Pulse Rate [ Apical] Pulse Rate [ From Monitor] Respiratory 13 12 Rate Blood Pressure 145/79 143/77 144/81 O2 Sat by Pulse 100 100 Oximetry O2 Sat by Pulse Oximetry [ Bilateral Throughout] 10/03/16 10/03/16 10/03/16 11:30 11:41 11:45 Temperature Pulse Rate 63 67 66 Pulse Rate [ Apical] Pulse Rate [ From Monitor] Respiratory 14 12 Rate Blood Pressure 147/81 147/81 147/81 O2 Sat by Pulse 98 100 Oximetry O2 Sat by Pulse Oximetry [ Bilateral Throughout] 10/03/16 10/03/16 10/03/16 11:51 12:00 12:11 Temperature 98.1 F Pulse Rate 66 66 66 Pulse Rate [ Apical] Pulse Rate [ From Monitor] Respiratory 13 12 14 Rate Blood Pressure 136/76 142/82 142/82 O2 Sat by Pulse 100 98 100 Oximetry O2 Sat by Pulse Oximetry [ Bilateral Throughout] 10/03/16 10/03/16 10/03/16 12:15 12:21 12:30 Temperature Pulse Rate 64 62 62 Pulse Rate [ Apical] Pulse Rate [ From Monitor] Respiratory 13 11 L Rate Blood Pressure 142/80 152/74 144/78 O2 Sat by Pulse 99 98 Oximetry O2 Sat by Pulse Oximetry [ Bilateral Throughout] 10/03/16 10/03/16 10/03/16 12:41 12:45 12:51 Temperature Pulse Rate 64 61 62 Pulse Rate [ Apical] Pulse Rate [ From Monitor] Respiratory 13 12 Rate Blood Pressure 144/78 144/78 139/75 O2 Sat by Pulse 100 100 Oximetry O2 Sat by Pulse Oximetry [ Bilateral Throughout] 10/03/16 10/03/16 10/03/16 13:00 13:11 13:15 Temperature Pulse Rate 62 64 62 Pulse Rate [ Apical] Pulse Rate [ From Monitor] Respiratory 12 12 Rate Blood Pressure 153/80 153/80 153/80 O2 Sat by Pulse 97 100 Oximetry O2 Sat by Pulse Oximetry [ Bilateral Throughout] 10/03/16 10/03/16 10/03/16 13:21 13:30 13:41 Temperature Pulse Rate 65 61 61 Pulse Rate [ Apical] Pulse Rate [ From Monitor] Respiratory 11 L 11 L 11 L Rate Blood Pressure 158/85 146/80 146/80 O2 Sat by Pulse 100 98 100 Oximetry O2 Sat by Pulse Oximetry [ Bilateral Throughout] 10/03/16 10/03/16 10/03/16 13:46 13:50 13:51 Temperature Pulse Rate 62 73 62 Pulse Rate [ Apical] Pulse Rate [ From Monitor] Respiratory 12 Rate Blood Pressure 146/81 137/80 137/80 O2 Sat by Pulse 100 Oximetry O2 Sat by Pulse Oximetry [ Bilateral Throughout] 10/03/16 10/03/16 14:01 14:26 Temperature 98.1 F Pulse Rate 61 71 Pulse Rate [ Apical] Pulse Rate [ From Monitor] Respiratory 7 L 16 Rate Blood Pressure 122/77 135/75 O2 Sat by Pulse 99 Oximetry O2 Sat by Pulse 99 Oximetry [ Bilateral Throughout] - General Appearance General appearance: well-developed, well-nourished, appears stated age EENT: PERRL, mucous membranes moist Neck: no JVD, no thyromegaly, no carotid bruit, supple Respiratory: Present: Clear to Ascultation, Other (no wheezing ) Cardiology: regular, normal heart rate, S1S2, no murmurs Gastrointestinal: normoactive bowel sounds, no tenderness Integumentary: no rash, warm and dry Neurologic: no focal deficit, alert and oriented x3, reflexes 2+ and symmetric, gait normal, strength 5/5 Musculoskeletal: other (AVF RUE with bruits ) Psychiatric: mood/affect appropriate, cooperative - Lab 10/01/16 14:59 10/02/16 05:30 Most recent lab results Calcium 8.9 mg/dL (8.4-10.2) 10/02/16 00:21
== END 2016-10-03 15:08 | disposition home or self-care (01) | DRG 682 ==
LOC: ED 13:39 → 4A 17:26 → CC1 23:28
PROVIDERS: ADMIT Internal Medicine; ATTEND Internal Medicine
PROC: 5A1D60Z (ICD-10-PCS; principal; 2016-10-01)
DX: I12.0 Hypertensive chronic kidney disease with stage 5 chronic kidney disease or end stage renal disease (principal); J96.00 Acute respiratory failure, unspecified whether with hypoxia or hypercapnia; N18.6 End stage renal disease; B20 Human immunodeficiency virus [HIV] disease; E87.2 Acidosis; D63.1 Anemia in chronic kidney disease; E87.70 Fluid overload, unspecified; E87.5 Hyperkalemia; I16.0 Hypertensive urgency; Z99.2 Dependence on renal dialysis; Z91.15 Patient's noncompliance with renal dialysis; Z79.82 Long term (current) use of aspirin; Z79.899 Other long term (current) drug therapy; Z88.2 Allergy status to sulfonamides; Z88.8 Allergy status to other drugs, medicaments and biological substances; Z82.49 Family history of ischemic heart disease and other diseases of the circulatory system; Z88.1 Allergy status to other antibiotic agents
CPT/HCPCS: 36415; 71010; 80048; 80061; 82962; 83880; 84132; 84484; 85025; 93005; 93010; 96374; 96375; J0360; J0610; J1815; J2405; J7050